=== PATIENT | female | born 1965 | race Caucasian/White ===

== ENCOUNTER 2016-05-13 20:55 | Outpatient (CLI) | payer BC ==
[~2016-05-13 20:55] MED LIST: ATEN25TA; D50KC PO; ESTR1TAB18; HYDR-757 PO; LISI1TAB6 PO; LVT.025T PO; TRM50T PO; [UNRECOGNIZED DRUG - REMARK]
== END 2016-05-14 06:05 | disposition home or self-care (01) ==
LOC: SLEEP 20:55
PROVIDERS: ATTEND Family Medicine
DX: G47.30 Sleep apnea, unspecified (principal); R06.83 Snoring
CPT/HCPCS: 95810

== ENCOUNTER 2016-06-08 19:59 | Outpatient (CLI) | payer BC ==
--- OUTSIDE RECORDS SUMMARY | 2016-06-08 20:02 | XMS REPORT | Continuity of Care Document ---
Author Author [facility] Organization [facility] Address Unknown Phone Unavailable Care Team Providers Care Marketing Performance Analyst Name Role Phone JEFF BUSTILLO DO PCP Insurance Providers Payer Name Policy Number Subscriber Name Relationship [facility] [id number] Jonny Singh 18 Self / Same As Patient [facility] [id number] Jonny Singh 18 Self / Same As Patient Advance Directives Directive Response Recorded Date/Time Advance Directives No 05/20/14 10:07am Organ Donor Yes 05/20/14 10:07am Problems No problem information available. Medications Current Home Medications Medication Dose Units Route Directions Days/Qty Instructions Start Date Ergocalciferol 50,000 Units 50,000 Units Oral Weekly 06/11/13 Levothyroxine Sodium 25 Mcg 25 Mcg Oral Daily 06/11/13 Hctz/Lisinopril (Zestoretic) 1 Each 1 Tab Oral Daily 06/11/13 Tramadol Hcl 50 Mg 50 Mg Oral Every 12 Hours as needed for P 30 NEW PRESCRIPTION CALLED IN TO [facility]. LAST DOSE AT 9:50AM 06/23/13 Past Home Medications Medication Directions Ordered Status Atenolol 25 Mg Tablet, 02/15/09 Discontinued [Stertera] , 02/15/09 Discontinued Estrogen,Con/M-Progest Acet 1 Each Tablet, 02/15/09 Discontinued Hydrocodone Bit/Acetaminophen 1 Each Tablet, 1 Each Oral Q 4 Hours 02/15/09 Discontinued Social History Social History Problem Response Recorded Date/Time Recent Foreign Travel No 05/07/2016 1:56pm Hx Sexually Transmitted Disorders No 06/23/2013 6:35am Hospital Discharge Instructions No hospital discharge instructions. Plan of Care Discharge Date 05/14/16 6:05am Prescriptions See Medication Section Functional Status No functional status results. Allergies, Adverse Reactions, Alerts Allergen Type Severity Reaction Status Last Updated NKANo Known Allergies Allergy Mild Active 02/15/09 Immunizations No immunization records. Vital Signs No known vital signs results. Results No known relevant diagnostic tests, laboratory data and/or discharge summary. Procedures No known history of procedures. Encounters Encounter Location Arrival/Admit Date Discharge/Depart Date Attending Provider Departed Clinic [facility] 05/13/16 8:55pm 05/14/16 6: 05am JEFF BUSTILLO DO
== END 2016-06-09 05:50 | disposition home or self-care (01) ==
LOC: SLEEP 19:59
PROVIDERS: ATTEND Family Medicine
DX: G47.33 Obstructive sleep apnea (adult) (pediatric) (principal)
CPT/HCPCS: 95811

== ENCOUNTER 2017-01-16 10:12 | Emergency (ER) | payer BC ==
[~2017-01-16] VITALS: Ht 165.1 cm; Wt 85.7 kg
--- OUTSIDE RECORDS SUMMARY | 2017-01-16 10:19 | XMS REPORT | Continuity of Care Document ---
Author Author [facility] Organization [facility] Address Unknown Phone Unavailable Allergies Active Description Code Type Severity Reaction Onset Reported/Identified Relationship to Patient Clinical Status Yes NKANo Known Allergies NKA Miscellaneous Allergy Mild N/A 02/15/2009 Medications Problems Date Dx Coded Attending Type Code Diagnosis Diagnosed By 06/23/2013 NATASHA AVALOS, ONEIL Hansen Ot 611.72 LUMP OR MASS IN BREAST 03/28/2014 KISHAN WALLACE CLARIFIER Ot 793.89 06/09/2014 JEFF BUSTILLO DO S Ot 276.51 10/28/2014 PETER SIDNEY C WIND FARM DESIGNER Ot 793.89 10/28/2014 PETER SIDNEY C WIND FARM DESIGNER Ot V76.12 10/28/2014 PETER, SIDNEY C WIND FARM DESIGNER Ot 793.89 10/28/2014 NATASHA AVALOS, ONEIL Hansen Ot 611.72 10/28/2014 NATASHA AVALOS, ONEIL Hansen Ot V72.83 10/28/2014 NATASHA AVALOS, ONEIL Hansen Ot V74.8 10/28/2014 KISHAN WALLACE CLARIFIER Ot 793.80 10/28/2014 KISHAN WALLACE CLARIFIER Ot 793.89 10/28/2014 JEFF BUSTILLO DO S Ot 276.51 04/19/2016 PETER SIDNEY C WIND FARM DESIGNER Ot 793.89 OTH (ABN) FINDINGS ON RADIOLOGICAL EXAMI 04/19/2016 RIDMARIJA, SIDNEY C WIND FARM DESIGNER Ot V76.12 OTH SCREEN MAMMO-MALIGN NEOPLASM OF SAJAN 04/19/2016 PETER, SIDNEY C WIND FARM DESIGNER Ot 793.89 OTH (ABN) FINDINGS ON RADIOLOGICAL EXAMI 04/19/2016 NATASHA AVALOS, ONEIL Hansen Ot 611.72 LUMP OR MASS IN BREAST 04/19/2016 NATASHA AVALOS, ONEIL Hansen Ot V72.83 EXAM PRE-OPERATIVE NEC 04/19/2016 NATASHA AVALOS, ONEIL Hansen Ot V74.8 SCREEN-BACTERIAL DIS NEC 04/19/2016 KISHAN WALLACE CLARIFIER Ot 793.80 UNSPEC ABNORMAL MAMMOGRAM 04/19/2016 KISHAN WALLACE CLARIFIER Ot 793.89 OTH (ABN) FINDINGS ON RADIOLOGICAL EXAMI 04/19/2016 JEFF BUSTILLO DO S Ot 276.51 DEHYDRATION 05/13/2016 SIDNEY GREEN WIND FARM DESIGNER Ot 793.89 OTH (ABN) FINDINGS ON RADIOLOGICAL EXAMI 05/13/2016 SIDNEY GREEN WIND FARM DESIGNER Ot V76.12 OTH SCREEN MAMMO-MALIGN NEOPLASM OF SAJAN 05/13/2016 SIDNEY GREEN WIND FARM DESIGNER Ot 793.89 OTH (ABN) FINDINGS ON RADIOLOGICAL EXAMI 05/13/2016 NATASHA AVALOS, ONEIL Hansen Ot 611.72 LUMP OR MASS IN BREAST 05/13/2016 NATASHA AVALOS, ONEIL Hansen Ot V72.83 EXAM PRE-OPERATIVE NEC 05/13/2016 NATASHA AVALOS, ONEIL Hansen Ot V74.8 SCREEN-BACTERIAL DIS NEC 05/13/2016 KISHAN WALLACE CLARIFIER Ot 793.80 UNSPEC ABNORMAL MAMMOGRAM 05/13/2016 KISHAN WALLACE CLARIFIER Ot 793.89 OTH (ABN) FINDINGS ON RADIOLOGICAL EXAMI 05/13/2016 JEFF BUSTILLO DO S Ot 276.51 DEHYDRATION 05/14/2016 JOSH BUSTILLO DOLINE S Ot G47.30 SLEEP APNEA, UNSPECIFIED 05/14/2016 JOSH BUSTILLO DOLINE S Ot R06.83 SNORING 05/14/2016 MARTIN BUSTILLO DOQUELINE S Ot G47.30 SLEEP APNEA, UNSPECIFIED 05/14/2016 ROBBIENDMARTIN SMALL DOQUELINE S Ot R06.83 SNORING 06/09/2016 MARTIN BUSTILLO DOQUELINE S Ot G47.33 OBSTRUCTIVE SLEEP APNEA (ADULT) ( PEDIATR 06/10/2016 MARTIN BUSTILLO DOQUELINE S Ot G47.33 OBSTRUCTIVE SLEEP APNEA (ADULT) ( PEDIATR Procedures Results Encounters ACCT No. Visit Date/Time Discharge Status Pt. Type Provider Facility Loc./Unit Complaint [id number] 06/08/2016 19:59:00 2016 05:50:00 DIS Outpatient JEFF BUSTILLO DO [facility] SLEEP DEDE [id number] 05/13/2016 20:55:00 2016 06:05:00 DIS Outpatient JEFF BUSTILLO DO [facility] SLEEP OBSERVED APNEA, SNORING [id number] 05/20/2014 10:02:00 2014 23:59:59 CLS Outpatient JEFF BUSTILLO DO [facility] SDC DEHYDRATION [id number] 03/01/2014 14:06:00 2013 23:59:59 CLS Outpatient KISHAN WALLACE CLARIFIER [facility] RAD SCREENING [id number] 09/10/2013 07:45:00 2013 23:59:59 CLS Outpatient KISHAN WALLACEP [facility] RAD 6 MNTH FOLLOW UP [id number] 06/23/2013 06:03:00 2013 10:28:00 DIS Outpatient ONEIL KAUR MD [facility] SDC LEFT BREAST LUMP [id number] 06/11/2013 15:14:00 2013 23:59:59 CLS Outpatient ONEIL KAUR MD [facility] PREOP LEFT BREAST LUMP [id number] 02/23/2013 12:28:00 2012 23:59:59 CLS Outpatient RIDSIDNEY DUTTON WIND FARM DESIGNER [facility] RAD LT BREAST NODULES [id number] 02/03/2013 15:32:00 2012 23:59:59 CLS Outpatient RIDSIDNEY DUTTON WIND FARM DESIGNER [facility] RAD SCREENING [id number] 12/30/2014 16:51:00 Document Registration
[2017-01-16 10:35] LABS: BASOPHILS % (AUTO) 0 % (0-10); EOSINOPHILS # (AUTO) 0.3 10^3/uL (0.0-0.3); EOSINOPHILS % (AUTO) 3 % (0-10); LYMPHOCYTES # (AUTO) 4.8 X 10^3 (1.0-4.0); LYMPHOCYTES % (AUTO) 42 % (12-44); MEAN CORPUSCULAR HEMOGLOBIN 30 PG (25-34); MEAN CORPUSCULAR HGB CONC 34 G/DL (32-36); MEAN CORPUSCULAR VOLUME 89 FL (80-99); MEAN PLATELET VOLUME 8.9 FL (7.4-10.4); MONOCYTES # (AUTO) 0.8 X 10^3 (0.0-1.0); MONOCYTES % (AUTO) 7 % (0-12); NEUTROPHILS # (AUTO) 5.5 X 10^3 (1.8-7.8); NEUTROPHILS % (AUTO) 48 % (42-75); PLATELET COUNT 380 10^3/uL (130-400); RED CELL DISTRIBUTION WIDTH 12.8 % (10.0-14.5); WHITE BLOOD COUNT 11.3 10^3/uL (4.3-11.0)
[2017-01-16 10:45] LABS: INR 0.9 (0.8-1.4); PROTHROMBIN TIME PATIENT 12.2 SEC (12.2-14.7)
[2017-01-16] MEDS ORDERED: BUPR300T51 (10:52)
--- NOTE | 2017-01-16 10:54 | ED Cough/URI ---
General Chief Complaint: Chest Wall/Rib Pain Stated Complaint: CP Nursing Triage Note: AMB TO ROOM REPORTS HAS HAS COUGH AND CONGESTION FOR 1 WEEK FINISHED STEROID 2 DAYS AGO. LAST NIGHT ONSET OF CHEST PRESSURE LAST NIGHT WORSE WHEN TAKING A DEEP BREATH,AND FELT LIKE HEART WAS RACING. HAD B/P TAKEN BY SCHOOL NURSE WAS TOLD B/P WAS UP. Source: patient History of Present Illness Time seen by provider: 10:25 Initial Comments PT ARRIVES VIA POV FROM HOME C/O NON-PRODUCTIVE COUGH SINCE 12/23/16 NOW BEGINNING TO HAVE MID CHEST PAIN AND SHORTNESS OF BREATH--HURTS TO COUGH-- SINCE LAST PM NO FEVER/SWEATS /CHILLS RX FOR PREDNISONE CALLED IN LAST WEEK, FINISHED 2 DAYS AGO. NO SIGNIFICANT IMPROVEMENT. DID NOT SEE --RX JUST CALLED IN NO SWELLING IN LEGS/FEET OR PAIN IN [place]ES HAS TAKEN MUCINEX A COUPLE OF TIMES WITHOUT IMPROVEMENT TAKES ZYZAL AT HS FOR ALLERGIES LAST COUPLE OF DAYS HER UPPER TEETH HAVE BEEN ACHING NO HISTORY OF RESPIRATORY OR CARDIAC PROBLEMS--DOES TAKE MED FOR HTN. PCP: DR. BUSTILLO Allergies and Home Medications Allergies Coded Allergies: Lulú Known Allergies (Unverified Allergy, Mild, 02/15/09) Home Medications Bupropion HCl 300 Mg Tab.er.24h, (Reported) Ergocalciferol 50,000 Units Cap, 50,000 UNITS PO WEEKLY, (Reported) Hctz/Lisinopril 1 Each Tablet, 1 TAB PO DAILY, (Reported) Levothyroxine Sodium 25 Mcg Tablet, 25 MCG PO DAILY, (Reported) Tramadol Hcl 50 Mg Tab, 50 MG PO Q12H PRN for P, #30 NEW PRESCRIPTION CALLED IN TO [facility]. LAST DOSE AT 9:50AM Prescribed by: AMARILIS LFOTON on 06/23/13 0952 Constitutional: no symptoms reported EENTM: see HPI (ALLERGIES), nose congestion Respiratory: see HPI, cough, No phlegm, short of breath, No wheezing Cardiovascular: see HPI, chest pain, palpitations, No syncope, No other Gastrointestinal: no symptoms reported Genitourinary: no symptoms reported Musculoskeletal: no symptoms reported Skin: no symptoms reported Psychiatric/Neurological: No Symptoms Reported Hematologic/Lymphatic: No Symptoms Reported Immunological/Allergic: see HPI (SEASONAL ALLERGIES) Past Ktmrykb-Dmmgzb-Gavpkn Hx Patient Social History Alcohol Use: Denies Use Recreational Drug Use: No Smoking Status: Never a Smoker Recent Foreign Travel: No Contact w/Someone Who Travel: No Recent Infectious Disease Expo: No Immunizations Up To Date Date of Influenza Vaccine: Dec 20, 2013 Seasonal Allergies Seasonal Allergies: Yes Surgeries History of Surgeries: Yes (C/S X4, ) Surgeries: Gallbladder, Hysterectomy Respiratory History of Respiratory Disorde: No Cardiovascular History of Cardiac Disorders: Yes Cardiac Disorders: Hypertension Neurological History of Neurological Disord: No Reproductive System Hx Reproductive Disorders: No Sexually Transmitted Disease: No Genitourinary History of Genitourinary Disor: No Gastrointestinal History of Gastrointestinal Di: No Musculoskeletal History of Musculoskeletal Dis: No Endocrine History of Endocrine Disorders: Yes Endocrine Disorders: Hypothyroidsim HEENT History of HEENT Disorders: No Cancer History of Cancer: No Psychosocial History of Psychiatric Problem: No Integumentary History of Skin or Integumenta: No Blood Transfusions History of Blood Disorders: No Physical Exam Vital Signs Vital Sign - Last 12Hours 01/16/17 10:12 Temp 97.4 Pulse 79 Resp 18 B/P (MAP) 144/86 O2 Delivery Room Air Capillary Refill : Less Than 3 Seconds General Appearance: WD/WN, no apparent distress, other (FREQUENT COUGH-- APPEARS TO BE FROM UPPER RESPIRATORY TRACT/THROAT, WITH FREQUENT THROAT CLEARING --NOT A "DEEP" COUGH) HEENT: PERRL/EOMI, normal ENT inspection (EXCEPT CLEAR POST NASAL DRAINAGE), TMs normal, pharynx normal, other (+ BILATERAL MAXILLARY SINUS TENDERNESS. ) Neck: non-tender, full range of motion, supple, normal inspection Respiratory: chest non-tender, normal breath sounds, no respiratory distress, no accessory muscle use Cardiovascular: regular rate, rhythm, no edema, no JVD, no murmur Gastrointestinal: normal bowel sounds, non tender, soft Extremities: normal range of motion, non-tender, normal inspection, no pedal edema, no calf tenderness, normal capillary refill Neurologic/Psychiatric: system validation engineer II-XII nml as tested, no motor/sensory deficits, alert, normal mood/affect, oriented x 3 Skin: normal color, warm/dry Progress/Results/Core Measures Results/Orders Lab Results Laboratory Tests Test 01/16/17 10:26 Range/Units White Blood Count 11.3 H 4.3-11.0 10^3/uL Red Blood Count 4.70 4.35-5.85 10^6/uL Hemoglobin 14.2 11.5-16.0 G/DL Hematocrit 42 35-52 % Mean Corpuscular Volume 89 80-99 FL Mean Corpuscular Hemoglobin 30 25-34 PG Mean Corpuscular Hemoglobin Concent 34 32-36 G/DL Red Cell Distribution Width 12.8 10.0-14.5 % Platelet Count 380 130-400 10^3/uL Mean Platelet Volume 8.9 7.4-10.4 FL Neutrophils (%) (Auto) 48 42-75 % Lymphocytes (%) (Auto) 42 12-44 % Monocytes (%) (Auto) 7 0-12 % Eosinophils (%) (Auto) 3 0-10 % Basophils (%) (Auto) 0 0-10 % Neutrophils # (Auto) 5.5 1.8-7.8 X 10^3 Lymphocytes # (Auto) 4.8 H 1.0-4.0 X 10^3 Monocytes # (Auto) 0.8 0.0-1.0 X 10^3 Eosinophils # (Auto) 0.3 0.0-0.3 10^3/uL Basophils # (Auto) 0.0 0.0-0.1 10^3/uL Prothrombin Time 12.2 12.2-14.7 SEC INR Comment 0.9 0.8-1.4 Activated Partial Thromboplast Time 25 24-35 SEC Sodium Level 138 135-145 MMOL/L Potassium Level 3.3 L 3.6-5.0 MMOL/L Chloride Level 99 98-107 MMOL/L Carbon Dioxide Level 26 21-32 MMOL/L Anion Gap 13 5-14 MMOL/L Blood Urea Nitrogen 22 H 7-18 MG/DL Creatinine 0.88 0.60-1.30 MG/DL Estimat Glomerular Filtration Rate > 60 BUN/Creatinine Ratio 25 Glucose Level 94 70-105 MG/DL Calcium Level 9.3 8.5-10.1 MG/DL Magnesium Level 1.9 1.8-2.4 MG/DL Total Bilirubin 0.4 0.1-1.0 MG/DL Aspartate Amino Transf (AST/SGOT) 16 5-34 U/L Alanine Aminotransferase (ALT/SGPT) 22 0-55 U/L Alkaline Phosphatase 62 40-136 U/L Total Creatine Kinase 61 29-168 U/L Creatine Kinase MB 1.7 <6.6 NG/ML B-Type Natriuretic Peptide 11.2 <100.0 PG/ML Total Protein 7.8 6.4-8.2 GM/DL Albumin 4.3 3.2-4.5 GM/DL My Orders Orders - KAREN DESIR DO Ekg Tracing (01/16/17 10:14) Saline Lock/Iv-Start (01/16/17 10:29) Monitor-Rhythm Ecg Trace Only (01/16/17 10:29) BNP (01/16/17 10:29) Cbc With Automated Diff (01/16/17 10:29) Comprehensive Metabolic Panel (01/16/17 10:29) Creatine Kinase (01/16/17 10:29) Creatine Kinase Mb (01/16/17 10:29) Magnesium (01/16/17 10:29) Protime With Inr (01/16/17 10:29) Partial Thromboplastin Time (01/16/17 10:29) Troponin I (01/16/17 10:29) Chest Pa/Lat (2 View) (01/16/17 10:29) Vital Signs/I&O Vital Sign - Last 12Hours 01/16/17 10:12 Temp 97.4 Pulse 79 Resp 18 B/P (MAP) 144/86 O2 Delivery Room Air Blood Pressure Mean: 105 Diagnostic Imaging Comments CXR--NO ACUTE PROCESS, PER RADIOLOGIST REPORT @ 1104 Reviewed: Reviewed by Me Departure Impression Impression: Primary Impression: Acute bronchitis Additional Impressions: Sinusitis Chest wall pain Disposition: 01 HOME, SELF-CARE Condition: Stable Departure-Patient Inst. Referrals: JEFF BUSTILLO DO (PCP/Family) Primary Care Physician Patient Instructions: Acute Bronchitis, Adult (DC), Costochondritis (DC), Sinusitis, Adult (DC) Add. Discharge Instructions: LOTS OF CLEAR LIQUIDS CONTINUE ZYZAL DAILY TYLENOL AND MOTRIN NEEDED FOR PAIN YOU MAY TAKE PLAIN MUCINEX 600 MG TWICE A DAY FOLLOW UP WITH DR. BUSTILLO IN 3-4 DAYS FOR FURTHER CARE All discharge instructions reviewed with patient and/or family. Voiced understanding. Scripts D-Methorphan Hb/Prometh HCl (Promethazine-Dm Syrup) 118 Ml Syrup 1-2 TSP PO Q4H for Cough, #120 ML Prov: KAREN DESIR DO 01/16/17 Benzonatate (Tessalon Perle) 100 Mg Capsule 1-2 TAB PO TID for Cough, #30 CAP Prov: KAREN DESIR DO 01/16/17 Fluticasone Propionate (Flonase Allergy Relief) 9.9 Ml [place].susp 2 SPRAYS NS BID, #1 SPRAY Prov: KAREN DESIR DO 01/16/17 Levofloxacin (Levaquin) 500 Mg Tablet 500 MG PO DAILY for INFECTION, #14 TAB Prov: KAREN DESIR DO 01/16/17 KAREN DESIR DO Jan 16, 2017 10:54
[2017-01-16 10:56] LABS: ALANINE AMINOTRANSFERASE 22 U/L (0-55); ALBUMIN 4.3 GM/DL (3.2-4.5); ANION GAP 13 MMOL/L (5-14); ASPARTATE AMINO TRANSFERASE 16 U/L (5-34); BILIRUBIN,TOTAL 0.4 MG/DL (0.1-1.0); BLOOD UREA NITROGEN 22 MG/DL (7-18); BUN/CREATININE RATIO 25; CALCIUM 9.3 MG/DL (8.5-10.1); CARBON DIOXIDE 26 MMOL/L (21-32); CHLORIDE 99 MMOL/L (98-107); CREATINE KINASE 61 U/L (29-168); CREATININE SERUM 0.88 MG/DL (0.60-1.30); GFR ESTIMATED > 60; GLUCOSE 94 MG/DL (70-105); MAGNESIUM 1.9 MG/DL (1.8-2.4); POTASSIUM 3.3 MMOL/L (3.6-5.0); SODIUM 138 MMOL/L (135-145); TOTAL PROTEIN 7.8 GM/DL (6.4-8.2)
[2017-01-16 11:03] LABS: TROPONIN I < 0.30 NG/ML (<0.30)
--- NOTE | 2017-01-16 11:03 | Diagnostic Imaging Report ---
PA and lateral views of the chest Indication: Cough Findings: The lungs are clear. The heart size is normal. There is no effusion or pneumothorax The mediastinum and katie appear unremarkable. Surgical clips are seen in the upright abdomen. Impression: Unremarkable study. Dictated by: Dictated on workstation # [id number]
[2017-01-16] MEDS ORDERED: LEVO500T2 PO (11:14)
[2017-01-16] MEDS ORDERED: BENZ-13 PO (11:14)
[2017-01-16] MEDS ORDERED: D-ME118S7 PO (11:14)
[2017-01-16] MEDS ORDERED: FLUT9.9S NS (11:14)
[2017-01-16 11:24] VITALS: BP 123/72
== END 2017-01-16 11:24 | disposition home or self-care (01) ==
LOC: EDUNIT# 10:12 → ER 10:15
DX: J20.9 Acute bronchitis, unspecified (principal); J30.9 Allergic rhinitis, unspecified; R07.89 Other chest pain; I10 Essential (primary) hypertension; E03.9 Hypothyroidism, unspecified; Z90.710 Acquired absence of both cervix and uterus; Z87.59 Personal history of other complications of pregnancy, childbirth and the puerperium
CPT/HCPCS: 36415; 71020; 80053; 82550; 82553; 83735; 83880; 84484; 85025; 85610; 85730; 93005; 93041

== ENCOUNTER → 2017-02-07 | Outpatient (CLI) | payer BC ==
[~2017-02-07] MED LIST changes: +BENZ-13 PO; +BUPR300T51; +D-ME118S7 PO; +FLUT9.9S NS; +LEVO500T2 PO
== END ==
LOC: CARD 16:14
PROVIDERS: ATTEND Family Medicine
DX: R07.9 Chest pain, unspecified (principal); R00.2 Palpitations
CPT/HCPCS: 93005

== ENCOUNTER → 2017-03-06 | Outpatient (CLI) | payer BC ==
--- NOTE | 2017-03-06 19:05 | Diagnostic Imaging Report ---
INDICATION: Persistent cough. PA and lateral chest obtained at 4:43 p.m. and compared to 01/16/17. FINDINGS: Heart and mediastinal silhouette are normal in appearance. The lungs are clear. There is no pneumothorax or pleural fluid. IMPRESSION: Negative chest. Dictated by: Dictated on workstation # [id number]
== END ==
LOC: RAD 16:09
PROVIDERS: ATTEND Family Medicine
DX: R05 Cough (principal)
CPT/HCPCS: 71020

== ENCOUNTER → 2017-03-07 | Outpatient (CLI) | payer BC | LOC: CARD 13:49 | PROVIDERS: ATTEND Family Medicine | DX: R01.1 Cardiac murmur, unspecified (principal); R60.9 Edema, unspecified | CPT/HCPCS: 93306 ==

== ENCOUNTER → 2017-03-12 | Outpatient (CLI) | payer BC | LOC: CARD 13:41 | PROVIDERS: ATTEND Family Medicine | DX: I49.9 Cardiac arrhythmia, unspecified (principal) | CPT/HCPCS: 93017 ==

== ENCOUNTER → 2017-03-17 | Outpatient (CLI) | payer BC ==
[~2017-03-17] MED LIST changes: +IOHEXOL 350 MG/ML 100 ML (OMNIPAQUE 350) VIAL IV ONE; +IOHEXOL 350 MG/ML 150 ML (OMNIPAQUE 350) VIAL IV ONE; +NS 100 ML (IVPB) BAG IV ONE
[2017-03-17 07:31] LABS: BLOOD UREA NITROGEN 14 MG/DL (7-18); BUN/CREATININE RATIO 17; CREATININE SERUM 0.83 MG/DL (0.60-1.30); GFR ESTIMATED > 60
--- NOTE | 2017-03-17 11:39 | Diagnostic Imaging Report ---
PROCEDURE: CT angiography of the chest with contrast. TECHNIQUE: Multiple contiguous axial images were obtained through the chest after uneventful bolus administration of intravenous contrast. Reconstructed CTA MIP acquisitions were also performed. INDICATION: Chest pain. 125 mL of Omnipaque 350 is administered intravenously. FINDINGS: The pulmonary arteries demonstrate no significant filling defect to suggest pulmonary embolism. The thoracic aorta is normal in caliber. No aortic dissection. No pericardial or pleural effusion. The heart size is near the upper limits of normal. The lungs demonstrate no significant consolidation or mass. Minimal atelectasis or scarring in the lung bases is seen. The sections in the upper abdomen demonstrate cholecystectomy clips. The osseous structures demonstrate minimal degenerative changes. IMPRESSION: No PE or aortic dissection. No significant abnormality. Dictated by: Dictated on workstation # [id number]
== END ==
LOC: RAD 07:03
PROVIDERS: ATTEND Family Medicine
DX: R07.9 Chest pain, unspecified (principal); R06.00 Dyspnea, unspecified; Z90.49 Acquired absence of other specified parts of digestive tract
CPT/HCPCS: 36415; 71275; 82565; 84520

== ENCOUNTER → 2017-04-02 | Outpatient (CLI) | payer BC ==
[~2017-04-02] MED LIST changes: -IOHEXOL 350 MG/ML 100 ML (OMNIPAQUE 350) VIAL IV ONE; -IOHEXOL 350 MG/ML 150 ML (OMNIPAQUE 350) VIAL IV ONE; -NS 100 ML (IVPB) BAG IV ONE
== END ==
LOC: RT 11:35
PROVIDERS: ATTEND Family Medicine
DX: R05 Cough (principal)
CPT/HCPCS: 94060; 94726; 94729

== ENCOUNTER → 2017-07-10 | Outpatient (CLI) | payer BC ==
--- NOTE | 2017-07-10 17:44 | Diagnostic Imaging Report ---
INDICATION: Routine screening. Comparison is made with prior study from 03/01/2014 and 02/03/2013. The current study was also evaluated with a Computer Aided Detection (CAD) system. FINDINGS: Scattered fibronodular densities are identified bilaterally. The parenchymal pattern is stable. The nodular densities in the left breast are stable. No new mass or malignant-appearing microcalcifications are seen. Axillae are unremarkable. IMPRESSION: No mammographic features suspicious for malignancy are identified. ACR BI-RADS Category 2: Benign findings. Result letter will be mailed to the patient. Note: At least 10% of breast cancer is not imaged by mammography. Dictated by: Dictated on workstation # [id number]
== END ==
LOC: RAD 09:24
PROVIDERS: ATTEND Family Medicine
DX: Z12.31 Encounter for screening mammogram for malignant neoplasm of breast (principal)
CPT/HCPCS: 77067

== ENCOUNTER 2017-08-05 05:39 | Outpatient (CLI) | payer BC ==
[~2017-08-05] VITALS: Ht 165.1 cm; Wt 85.7 kg
[~2017-08-05 05:39] MED LIST changes: -BUPR300T51; +BUPR300T51 PO
[2017-08-05] MEDS ORDERED: LOSA100T3 PO (15:48)
[2017-08-05] MEDS ORDERED: ERGO50006 PO (15:48)
[2017-08-05] MEDS ORDERED: LEVO50TA6 PO (15:48)
[2017-08-05] MEDS ORDERED: ALPR0.254 PO (15:53)
== END 2017-08-05 15:55 ==
LOC: PREOP 05:39
PROVIDERS: ATTEND Surgery
DX: Z01.818 Encounter for other preprocedural examination (principal); Z12.11 Encounter for screening for malignant neoplasm of colon

== ENCOUNTER → 2018-01-26 | Outpatient (CLI) | payer BC ==
[~2018-01-26] MED LIST changes: +ALPR0.254 PO; -BENZ-13 PO; +BENZ100C18 PO; +ERGO50006 PO; +LEVO50TA6 PO; +LOSA100T3 PO
--- NOTE | 2018-01-26 16:51 | Diagnostic Imaging Report ---
CLINICAL INDICATION: Patient with thyromegaly. COMPARISONS: None. FINDINGS: THYROID NODULES: None. THYROID GLAND: Thyroid gland is heterogeneous, but otherwise normal in size and configuration. The right lobe measures 5.1 cm x 1.8 cm x 1.6 cm and the left lobe measures 4.8 cm x 2.2 cm x 1.8 cm in their three dimensions. ISTHMUS: The isthmus is mildly prominent and measures 8 mm in thickness. IMPRESSION: The thyroid parenchyma is heterogeneous which is nonspecific. There are no measurable nodules seen. There is no abnormal central Doppler flow. Dictated by: Dictated on workstation # [id number]
== END ==
LOC: RAD 14:42
PROVIDERS: ATTEND Nurse Practitioner Family
DX: E04.2 Nontoxic multinodular goiter (principal)
CPT/HCPCS: 76536

== ENCOUNTER 2019-05-25 18:28 | Emergency (ER) | payer BC ==
[~2019-05-25] VITALS: Ht 160 cm; Wt 100.0 kg
[~2019-05-25 18:28] MED LIST changes: -D-ME118S7 PO; +PROM118S4 PO
[2019-05-25] MEDS ORDERED: KETOROLAC 30 MG/ML VIAL IVP ONE (19:30)
[2019-05-25] MEDS ORDERED: fentaNYL INJECTION 100 MCG/2 ML AMP IVP ONE ×2 (19:30→21:30)
--- NOTE | 2019-05-25 19:30 | ED Back Pain ---
General Chief Complaint: Back Problems Stated Complaint: BACK PAIN Nursing Triage Note: AMB TO ED C/O ABD PAIN WAS GIVEN A IM TODAY BY MAGNETIC LOCATER FLEXARIL AND TTORODOL IM AND RX FOR PREDISONE AND WAS TOLD NOT TO TAKE IT YET. WAS GIVEN RX FOR X RAYS C/O R BACK PAIN Nursing Sepsis Screen: No Definite Risk Source of Information: Patient Exam Limitations: No Limitations History of Present Illness Date Seen by Provider: May 25, 2019 Time Seen by Provider: 19:28 Initial Comments To ER by private vehicle with reports of right low back pain that began sometime in April with a rather insidious onset. Pain has become nearly intolerable throughout the past week she cannot recall any inciting event. Nothing makes it better and nothing makes it worse. No fever no chills no loss of bowel or bladder control and no loss of sensation of the genitals. No history of cancer herself. No history of back pain. Pain radiates from the right sacroiliac region to the right buttocks and around to the anterior right groin. Location: Coccyx Timing/Duration: 1-2 Days Severity: Moderate Associated Symptoms: lower back pain Allergies and Home Medications Allergies Coded Allergies: NKANo Known Allergies (Unverified Allergy, Mild, 02/15/09) Home Medications Alprazolam 0.25 Mg Tablet, 0.25 MG PO TID PRN for ANXIETY, (Reported) Bupropion HCl 300 Mg Tab.er.24h, 300 MG PO DAILY, (Reported) Ergocalciferol (Vitamin D2) 50,000 Unit Capsule, 50,000 UNIT PO WEEK, (Reported) Levothyroxine Sodium 50 Mcg Tablet, 50 MCG PO DAILY, (Reported) Losartan Potassium 100 Mg Tablet, 100 MG PO DAILY, (Reported) Patient Home Medication List Home Medication List Reviewed: Yes Review of Systems Constitutional: see HPI EENTM: see HPI Respiratory: no symptoms reported Cardiovascular: no symptoms reported Genitourinary: no symptoms reported Musculoskeletal: see HPI Skin: no symptoms reported Psychiatric/Neurological: No Symptoms Reported Past Knpwfzr-Gtuvvu-Owwpkz Hx Patient Social History Alcohol Use: Denies Use Recreational Drug Use: No Smoking Status: Never a Smoker Recent Foreign Travel: No Contact w/Someone Who Travel: No Recent Infectious Disease Expo: No Recent Hopitalizations: No Immunizations Up To Date Date of Influenza Vaccine: Dec 20, 2013 Seasonal Allergies Seasonal Allergies: Yes Past Medical History Surgeries: Yes (C/S X4, ) Gallbladder, Hysterectomy Respiratory: Yes Sleep Apnea Currently Using CPAP: Yes Cardiac: Yes Hypertension Neurological: No Reproductive Disorders: No VALVE SETTER History: Hysterectomy Sexually Transmitted Disease: No Genitourinary: No Gastrointestinal: No Musculoskeletal: No Endocrine: Yes Hypothyroidsim HEENT: No Cancer: No Psychosocial: No Integumentary: No Blood Disorders: No Physical Exam Vital Signs Vital Signs - First Documented 05/25/19 18:39 Temp 36.8 Pulse 73 Resp 18 B/P (MAP) 136/83 (100) Pulse Ox 98 Capillary Refill : Less Than 3 Seconds Height, Weight, BMI Height: 5'5.00" Weight: 189lbs. 0.0oz. 85.979743ba; 39.00 BMI Method:Stated General Appearance: No Apparent Distress, WD/WN Neck: Full Range of Motion, Normal Inspection Respiratory: No Accessory Muscle Use, No Respiratory Distress Gastrointestinal: Soft Extremity: Normal Capillary Refill, Normal Inspection Neurologic/Psychiatric: Alert, Oriented x3 Skin: Normal Color, Warm/Dry Right SI joint tenderness palpation Progress/Results/Core Measures Results/Orders My Orders Orders - WILLIAM STODDARD APRN Ketorolac Injection (Toradol Injection) (05/25/19 19:30) Fentanyl Injection (Sublimaze Injection (05/25/19 19:30) Ed Iv/Invasive Line Start (05/25/19 19:27) Ct Lumbar Spine Wo (05/25/19 19:27) Rx-Hydrocodone/Apap 5-325 Mg (Rx-Vicodin (05/25/19 21:00) Fentanyl Injection (Sublimaze Injection (05/25/19 21:30) Prednisone Tablet (Deltasone Tablet) (05/25/19 21:30) Medications Given in ED Current Medications Medications Dose Ordered Sig/Natali Route Start Time Stop Time Status Last Admin Dose Admin Fentanyl Citrate 50 mcg ONCE ONCE IVP 05/25/19 19:30 05/25/19 19:31 DC 05/25/19 19:55 50 MCG Ketorolac Tromethamine 30 mg ONCE ONCE IVP 05/25/19 19:30 05/25/19 19:31 DC 05/25/19 19:55 30 MG Vital Signs/I&O 05/25/19 18:39 Temp 36.8 Pulse 73 Resp 18 B/P (MAP) 136/83 (100) Pulse Ox 98 Blood Pressure Mean: 100 Departure Impression Primary Impression: Lumbar radiculopathy Disposition: 01 HOME, SELF-CARE Condition: Stable Departure-Patient Inst. Decision time for Depature: 20:47 Referrals: JEFF BUSTILLO DO (PCP/Family) Primary Care Physician Patient Instructions: Radiculopathy (DC), Low Back Pain (DC) Add. Discharge Instructions: 1. Call Dr. Bustillo tomorrow to make an appointment to be seen for follow-up. Go ahead and start the prednisone. All discharge instructions reviewed with patient and/or family. Voiced understanding. Scripts Prednisone (Prednisone) 20 Mg Tab 40 MG PO DAILY, #6 TAB 0 Refills Prov: WILLIAM STODDRAD APRN 05/25/19 Hydrocodone/Acetaminophen ([place] 5-325 Tablet) 1 Each Tablet 1 TAB PO Q4-6HR for Pain MDD 10 TABS for 7 Days, #10 TAB Prov: WILLIAM STODDARD APRN 05/25/19 Copy Copies To 1: JEFF BUSTILLO PETER J APRN May 25, 2019 19:30
[2019-05-25] MEDS ORDERED: RX-HYDROCODONE/APAP 5/325 MG #4 TAB PK PO PRN (21:00)
--- NOTE | 2019-05-25 21:07 | Diagnostic Imaging Report ---
PROCEDURE: CT lumbar spine without contrast. TECHNIQUE: Multiple contiguous axial images were obtained through the lumbar spine without the use of intravenous contrast. Sagittal and coronal reformations were then performed. Auto Exposure Controls were utilized during the CT exam to meet ALARA standards for radiation dose reduction. DATE: May 25, 2019. INDICATION: 54-year-old female, back pain extending down the right leg. COMPARISON: None. FINDINGS: The alignment of the lumbar spine is unremarkable. There is no identified pars interarticularis defect. There is severe disc height loss at L5-S1 with mild endplate degenerative related changes. There are mild bilateral facet degenerative changes at this level. There is moderate disc height loss at L4-L5. CT is limited for assessment of disc pathology as well as additional nonbloody causes of pathology in the spinal canal. At L4-L5, there is a diffuse disc bulge and there does appear to be high-grade right foraminal narrowing and likely mild to moderate right foraminal narrowing. There is suspected mild spinal stenosis. There also appears to be moderate bilateral foraminal narrowing at L5-S1. There is a suspected diffuse disc bulge at L5-S1. There is no identified acute fracture of the lumbar spine. The sacroiliac joints are unremarkable in appearance. There are atherosclerotic calcifications. IMPRESSION: 1. No identified acute fracture or malalignment of the lumbar spine. 2. Disc and facet degenerative changes of the lumbar spine most notable at L4-L5 and L5-S1. There is suspected foraminal and/or spinal stenosis at these levels. This would be more optimally evaluated with MRI. Dictated by: Dictated on workstation # [id number]
[2019-05-25] MEDS ORDERED: PRD20T PO (21:28)
[2019-05-25] MEDS ORDERED: HYDR-4226 PO (21:28)
[2019-05-25] MEDS ORDERED: predniSONE 20 MG TAB PO ONE (21:30)
[2019-05-25 21:38] VITALS: BP 132/78
== END 2019-05-25 21:39 | disposition home or self-care (01) ==
LOC: EDUNIT# 18:28 → ER 18:29
DX: M54.16 Radiculopathy, lumbar region (principal); I10 Essential (primary) hypertension; G47.30 Sleep apnea, unspecified; E03.9 Hypothyroidism, unspecified; Z99.89 Dependence on other enabling machines and devices
CPT/HCPCS: 72131

== ENCOUNTER → 2019-06-08 | Outpatient (CLI) | payer BC ==
[~2019-06-08] MED LIST changes: +HYDR-4226 PO; +PRD20T PO
--- NOTE | 2019-06-08 16:21 | Diagnostic Imaging Report ---
PROCEDURE: MRI lumbar spine. TECHNIQUE: Multiplanar, multisequence MRI of the lumbar spine was performed without contrast. INDICATION: Low back pain with right leg cramping. FINDINGS: The alignment of the lumbar spine is normal. The vertebral body heights are well maintained. There is no spondylolysis or spondylolisthesis. No fractures are identified. Conus medullaris is seen at L1 and is normal in appearance. There are no pathologic marrow signal intensity abnormalities. At T12-L1, there is no spinal or neural foraminal encroachment. At L1-L2, there is no spinal or neural foraminal encroachment. At L2-L3, there is no spinal or neural foraminal encroachment. At L3-L4, there is some facet disease and thickening of the ligamentum flavum. There is some minimal encroachment upon the central canal. There is no significant spinal or neural foraminal encroachment. At L4-L5, there is loss of disc height and signal intensity. There is broad-based annular bulging, facet disease, and thickening of the ligamentum flavum. There is moderate spinal stenosis with encroachment upon the lateral recess bilaterally. There is some moderate bilateral neural foraminal encroachment. At L5-S1, there is loss of disc height and signal intensity. There are Modic changes in the endplates. There is some annular bulging and facet disease. There is moderate spinal stenosis with some encroachment upon the lateral recess bilaterally. There is moderate bilateral neural foraminal encroachment. The aorta is nonaneurysmal. Visualized kidneys are unremarkable. IMPRESSION: Lower lumbar spondylosis and degenerative disc disease as detailed above. Dictated by: Dictated on workstation # [id number]
== END ==
LOC: RAD 14:58
PROVIDERS: ATTEND Orthopaedic Surgery Orthopaedic Surgery of the Spine
DX: M47.816 Spondylosis without myelopathy or radiculopathy, lumbar region (principal); M51.37 Other intervertebral disc degeneration, lumbosacral region; M48.07 Spinal stenosis, lumbosacral region
CPT/HCPCS: 72148

== ENCOUNTER 2020-12-06 15:52 | Emergency (ER) | payer BC ==
[~2020-12-06] VITALS: Ht 162 cm; Wt 95.0 kg
[~2020-12-06 15:52] MED LIST changes: +ALPR.25T PO; -ALPR0.254 PO; -BUPR300T51 PO; +BUPR300T98 PO; -PROM118S4 PO; +PROM118S5 PO
[2020-12-06 16:27] LABS: BASOPHILS % (AUTO) 0 % (0-10); EOSINOPHILS # (AUTO) 0.1 10^3/uL (0.0-0.3); EOSINOPHILS % (AUTO) 1 % (0-10); HEMATOCRIT 43 % (35-52); HEMOGLOBIN 14.4 g/dL (11.5-16.0); LYMPHOCYTES # (AUTO) 3.3 10^3/uL (1.0-4.0); LYMPHOCYTES % (AUTO) 36 % (12-44); MEAN CORPUSCULAR HEMOGLOBIN 30 pg (25-34); MEAN CORPUSCULAR HGB CONC 33 g/dL (32-36); MEAN CORPUSCULAR VOLUME 91 fL (80-99); MEAN PLATELET VOLUME 9.2 fL (9.0-12.2); MONOCYTES # (AUTO) 0.5 10^3/uL (0.0-1.0); MONOCYTES % (AUTO) 5 % (0-12); NEUTROPHILS # (AUTO) 5.1 10^3/uL (1.8-7.8); NEUTROPHILS % (AUTO) 57 % (42-75); PLATELET COUNT 355 10^3/uL (130-400)
[2020-12-06] MEDS ORDERED: dilTIAZem DRIP PRE-MIX 125 ML IV SCH (16:30)
[2020-12-06 16:32] LABS: ALBUMIN 4.5 GM/DL (3.2-4.5)
[2020-12-06 16:33] LABS: POTASSIUM 3.3 MMOL/L (3.6-5.0)
[2020-12-06 16:35] LABS: TOTAL PROTEIN 7.7 GM/DL (6.4-8.2)
[2020-12-06 16:37] LABS: BILIRUBIN,TOTAL 0.5 MG/DL (0.1-1.0)
[2020-12-06 16:39] LABS: CREATININE SERUM 0.86 MG/DL (0.60-1.30)
[2020-12-06 16:40] LABS: INR 0.9 (0.8-1.4); PROTHROMBIN TIME PATIENT 12.7 SEC (12.2-14.7)
[2020-12-06 16:42] LABS: MAGNESIUM 2.2 MG/DL (1.6-2.4)
--- NOTE | 2020-12-06 16:46 | Diagnostic Imaging Report ---
INDICATION: Chest pain. COMPARISON: 03/06/2017. FINDINGS: Single frontal view of the chest demonstrates normal heart size and pulmonary vascularity. The lungs are well aerated and clear. No large pleural effusion or pneumothorax is seen. The visualized osseous structures show no acute abnormalities. IMPRESSION: 1. No acute cardiopulmonary process. Dictated by: Dictated on workstation # [id number]
[2020-12-06 17:05] LABS: FREE T4 (FREE THYROXINE) 1.16 NG/DL (0.70-1.48)
--- NOTE | 2020-12-06 17:06 | ED Cardiac General ---
History of Present Illness General Chief Complaint: Cardiac/General Problems Stated Complaint: AFIB RVR Nursing Triage Note: TO ED PER EMS FROM [facility] PATIENT HAD WENT IN BECAUSE FELT NUMBNESS IN HEAD AND NECK WITH FLUTTER. CHC FOUND PATIENT TO BE IN A FIB WITH A RATE OF 100- 150 ON EMS ARRIVAL FOUND PATIENT TO BE IN A FIB WITH RATE OF 150 TO 200 VAGAL MANEUVERS TRIED. PATIENT B/P SYSTOLIC IN 80 FLUIDS INFUSING ON ADMIT PATIENT ALERT. ON ADMIT ANXIOUS REPORTS HAS PMH OF ANXIETY, Source: patient Exam Limitations: no limitations History of Present Illness Date Seen by Provider: Dec 06, 2020 Time Seen by Provider: 16:15 Allergies and Home Medications Allergies Coded Allergies: NKANo Known Allergies (Unverified Allergy, Mild, 02/15/09) Home Medications ALPRAZolam 0.25 Mg Tablet, 0.25 MG PO TID PRN for ANXIETY, (Reported) Apixaban 5 Mg Tablet, 5 MG PO BID Prescribed by: LAVON FRANCIS on 12/06/201902 Bupropion HCl 300 Mg Tab.er.24h, 300 MG PO DAILY, (Reported) Diltiazem HCl 240 Mg Cap.er.24h, 240 MG PO DAILY Prescribed by: LAVON FRANCIS on 12/06/201902 Ergocalciferol (Vitamin D2) 50,000 Unit Capsule, 50,000 UNIT PO WEEK, (Reported) Hydrocodone/Acetaminophen 1 Each Tablet, 1 TAB PO Q4-6HR Prescribed by: WILLIAM STODDARD on 05/25/192127 Levothyroxine Sodium 50 Mcg Tablet, 50 MCG PO DAILY, (Reported) Losartan Potassium 100 Mg Tablet, 100 MG PO DAILY, (Reported) Prednisone 20 Mg Tab, 40 MG PO DAILY Prescribed by: WILLIAM STODDARD on 05/25/192127 Past Igpobrn-Bdippb-Bsgalx Hx Patient Social History Tobacco Use?: No Use of E-Cig and/or Vaping dev: No Substance use?: No Alcohol Use?: No Pt feels they are or have been: No Immunizations Up To Date First/Initial COVID19 Vaccinat: MAY Second COVID19 Vaccination Jon: JUNE 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: [place] Seasonal Allergies Seasonal Allergies: Yes Past Medical History Surgeries: Yes (C/S X4, ) Gallbladder, Hysterectomy Respiratory: Yes Sleep Apnea Currently Using CPAP: Yes Cardiac: Yes Hypertension Neurological: No 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 0.0oz. 85.458616pe; 36.00 BMI Method:Stated Progress/Results/Core Measures Results/Orders Lab Results Laboratory Tests Test 12/06/20 15:55 Range/Units White Blood Count 9.0 4.3-11.0 10^3/uL Red Blood Count 4.75 3.80-5.11 10^6/uL Hemoglobin 14.4 11.5-16.0 g/dL Hematocrit 43 35-52 % Mean Corpuscular Volume 91 80-99 fL Mean Corpuscular Hemoglobin 30 25-34 pg Mean Corpuscular Hemoglobin Concent 33 32-36 g/dL Red Cell Distribution Width 13.2 10.0-14.5 % Platelet Count 355 130-400 10^3/uL Mean Platelet Volume 9.2 9.0-12.2 fL Immature Granulocyte % (Auto) 0 % Neutrophils (%) (Auto) 57 42-75 % Lymphocytes (%) (Auto) 36 12-44 % Monocytes (%) (Auto) 5 0-12 % Eosinophils (%) (Auto) 1 0-10 % Basophils (%) (Auto) 0 0-10 % Neutrophils # (Auto) 5.1 1.8-7.8 10^3/uL Lymphocytes # (Auto) 3.3 1.0-4.0 10^3/uL Monocytes # (Auto) 0.5 0.0-1.0 10^3/uL Eosinophils # (Auto) 0.1 0.0-0.3 10^3/uL Basophils # (Auto) 0.0 0.0-0.1 10^3/uL Immature Granulocyte # (Auto) 0.0 0.0-0.1 10^3/uL Prothrombin Time 12.7 12.2-14.7 SEC INR Comment 0.9 0.8-1.4 Activated Partial Thromboplast Time 28 24-35 SEC Sodium Level 140 135-145 MMOL/L Potassium Level 3.3 L 3.6-5.0 MMOL/L Chloride Level 103 98-107 MMOL/L Carbon Dioxide Level 25 21-32 MMOL/L Anion Gap 12 5-14 MMOL/L Blood Urea Nitrogen 16 7-18 MG/DL Creatinine 0.86 0.60-1.30 MG/DL Estimat Glomerular Filtration Rate 69 BUN/Creatinine Ratio 19 Glucose Level 119 H 70-105 MG/DL Calcium Level 10.2 H 8.5-10.1 MG/DL Corrected Calcium 9.8 8.5-10.1 MG/DL Magnesium Level 2.2 1.6-2.4 MG/DL Total Bilirubin 0.5 0.1-1.0 MG/DL Aspartate Amino Transf (AST/SGOT) 21 5-34 U/L Alanine Aminotransferase (ALT/SGPT) 27 0-55 U/L Alkaline Phosphatase 72 40-136 U/L Myoglobin 52.1 10.0-92.0 NG/ML Troponin I < 0.028 <0.028 NG/ML Total Protein 7.7 6.4-8.2 GM/DL Albumin 4.5 3.2-4.5 GM/DL Thyroid Stimulating Hormone (TSH) 1.84 0.35-4.94 UIU/ML Free Thyroxine 1.16 0.70-1.48 NG/DL My Orders Orders - LAVON MARION MD Cbc With Automated Diff (12/06/20 16:15) Magnesium (12/06/20 16:15) Chest 1 View, Ap/Pa Only (12/06/20 16:15) Ekg Tracing (12/06/20 16:15) Comprehensive Metabolic Panel (12/06/20 16:15) Myoglobin Serum (12/06/20 16:15) Protime With Inr (12/06/20 16:15) Partial Thromboplastin Time (12/06/20 16:15) O2 (12/06/20 16:15) Monitor-Rhythm Ecg Trace Only (12/06/20 16:15) Lipid Panel (12/07/20 06:00) Ed Iv/Invasive Line Start (12/06/20 16:15) Troponin I (12/06/20 16:15) Diltiazem Drip Pre-Mix (Cardizem Drip Pr (12/06/20 16:30) Diltiazem Injection (Cardizem Injection) (12/06/20 16:30) Thyroid Stimulating Hormone (12/06/20 16:25) Free T4 (Free Thyroxine) (12/06/20 16:25) Lorazepam Injection (Ativan Injection) (12/06/20 17:15) Potassium Chloride (Tablet) (Klor Con Ta (12/06/20 17:15) Apixaban Tablet (Eliquis Tablet) (12/06/20 18:15) Medications Given in ED Current Medications Medications Dose Ordered Sig/Natali Route Start Time Stop Time Status Last Admin Dose Admin Diltiazem HCl 10 mg ONCE ONCE IVP 12/06/20 16:30 12/06/20 16:31 DC 12/06/20 16:38 10 MG Lorazepam 0.5 mg ONCE ONCE IVP 12/06/20 17:15 12/06/20 17:16 DC 12/06/20 17:26 0.5 MG Potassium Chloride 20 meq ONCE ONCE PO 12/06/20 17:15 12/06/20 17:16 DC 12/06/20 17:29 20 MEQ Vital Signs/I&O 12/06/20 15:55 Temp 35.7 Pulse 110 Resp 18 B/P (MAP) 120/77 (91) Pulse Ox 97 O2 Delivery Room Air Blood Pressure Mean: 91 Initial ECG Impression Date: Dec 06, 2020 Initial ECG Impression Time: 16:01 Initial ECG Rate: 132 Initial ECG Rhythm: A Fib/Flutter Initial ECG Intervals: Normal Initial ECG Impression: Atrial Fibrillation w/RVR Comment Atrial fibrillation with RVR. Repolarization abnormality. No obvious ischemic ST elevation or depression. Departure Impression Primary Impression: Atrial fibrillation with RVR Additional Impression: Anxiety Departure-Patient Inst. Decision time for Depature: 19:02 Referrals: GABRIEL BOLTON MD FACP FAC CCDS JEFF BUSTILLO DO (PCP/Family) Primary Care Physician Patient Instructions: Atrial Fibrillation, Anxiety, Adult ED Add. Discharge Instructions: Start your Cardizem CD tomorrow as well as your Eliquis blood thinner. Call Dr. Bolton's office tomorrow morning to schedule a follow-up. Use the Ativan every 6 hours as needed for severe anxiety or panic attacks. If you have repeat episodes of A. fib that are symptomatic or lasting more than 15 to 30 minutes, please return to the emergency room. Call with questions or concerns. Return to care if you have any other worsening of condition. All discharge instructions reviewed with patient and/or family. Voiced understanding. Scripts Apixaban (Eliquis) 5 Mg Tablet 5 MG PO BID, #60 TAB Prov: LAVON MARION MD 12/06/20 Diltiazem HCl (Cardizem Cd) 240 Mg Cap.er.24h 240 MG PO DAILY, #30 CAP Prov: LAVON MARION MD 12/06/20 Work/School Note: Work Release Form Date Seen in the Emergency Department: Dec 06, 2020 Return to Work: Dec 08, 2020 Restrictions: No Restrictions LAVON MARION MD Dec 06, 2020 17:06
[2020-12-06 17:09] LABS: CALCIUM 10.2 MG/DL (8.5-10.1)
[2020-12-06] MEDS ORDERED: KCL 10 MEQ TAB (MICRO K) PO ONE (17:15)
[2020-12-06] MEDS ORDERED: LORazepam INJ 2 MG/ML (ATIVAN) VIAL IVP ONE (17:15)
[2020-12-06] MEDS ORDERED: APIXABAN 5 MG (ELIQUIS) TABLET PO ONE (18:15)
[2020-12-06] MEDS ORDERED: RX-LORAZEPAM (ATIVAN) 0.5 MG TAB PPK#4 PO STA (18:59)
[2020-12-06] MEDS ORDERED: DILT240C86 PO (19:03)
[2020-12-06] MEDS ORDERED: APIX5TAB PO (19:03)
--- NOTE | 2020-12-06 19:18 | Tele-ICU Consult ---
History of Present Illness History of Present Illness Date Seen by Provider: Dec 06, 2020 Time Seen by Provider: 19:13 Date of Admission History of Present Illness 55 y old lady admitted with cc of nimbness, headache; was found to be in A fib with rvr 150; pt was deferred to ED and was started on cardizem drip after a bolus of 10mg. Pt remained hemodynamically stable. Allergies and Home Medications Allergies Coded Allergies: NKANo Known Allergies (Unverified Allergy, Mild, 02/15/09) Home Medications ALPRAZolam 0.25 Mg Tablet, 0.25 MG PO TID PRN for ANXIETY, (Reported) Apixaban 5 Mg Tablet, 5 MG PO BID Prescribed by: LAVON FRANCIS on 12/06/201902 Bupropion HCl 300 Mg Tab.er.24h, 300 MG PO DAILY, (Reported) Diltiazem HCl 240 Mg Cap.er.24h, 240 MG PO DAILY Prescribed by: LAVON FRANCIS on 12/06/201902 Ergocalciferol (Vitamin D2) 50,000 Unit Capsule, 50,000 UNIT PO WEEK, (Reported) Hydrocodone/Acetaminophen 1 Each Tablet, 1 TAB PO Q4-6HR Prescribed by: WILLIAM STODDARD on 05/25/192127 Levothyroxine Sodium 50 Mcg Tablet, 50 MCG PO DAILY, (Reported) Losartan Potassium 100 Mg Tablet, 100 MG PO DAILY, (Reported) Prednisone 20 Mg Tab, 40 MG PO DAILY Prescribed by: WILLIAM STODDARD on 05/25/192127 Past Medical/Social/Family Hx Patient Social History Tobacco Use?: No Use of E-Cig and/or Vaping dev: No Substance use?: No Alcohol Use?: No Pt stated abuse/neglect: No Immunizations Up To Date First/Initial COVID19 Vaccinat: MAY Second COVID19 Vaccination Jon: JUNE Current Status Advance Directives: No Primary Language: Luxembourger Preferred Spoken Language: Luxembourger Sensory deficits: Vision impairment Implanted or Applied Medical D: Orthopedic hardware Past Medical History dede, hypothyroidism Review of Systems Constitutional: see HPI Sepsis Event Evaluation Height, Weight, BMI Height: 5'5.00" Weight: 189lbs. 0.0oz. 85.284694yr; 36.00 BMI Method:Stated Exam Exam Patient acknowledged, consented, and participated in this virtual visit which was conducted using real time audio/video Vital Signs Date Time Temp Pulse Resp B/P (MAP) Pulse Ox O2 Delivery O2 Flow Rate FiO2 12/06/20 15:55 35.7 110 18 120/77 (91) 97 Room Air Height & Weight Height: 5'5.00" Weight: 189lbs. 0.0oz. 85.979033fy; 36.00 BMI Method:Stated General Appearance: No Apparent Distress Capillary Refill: Less Than 3 Seconds Results Lab Laboratory Tests 12/06/20 15:55 Assessment/Plan Assessment/Plan Afib with RVR -continue cardizem pravin reynoso and check tsh DEDE cpap to be resumed DVT prophylaxis LISA ROCHE MD Dec 06, 2020 19:18
[2020-12-06 19:52] VITALS: BP 95/57
== END 2020-12-06 19:52 | disposition home or self-care (01) ==
LOC: EDUNIT# 15:52 → ER 15:53 → ICU 18:13 → UNDOADMIN 18:13
DX: I48.20 Chronic atrial fibrillation, unspecified (principal); F41.9 Anxiety disorder, unspecified; G47.30 Sleep apnea, unspecified; I10 Essential (primary) hypertension; E03.9 Hypothyroidism, unspecified; Z79.52 Long term (current) use of systemic steroids; Z79.890 Hormone replacement therapy; Z79.899 Other long term (current) drug therapy
CPT/HCPCS: 36415; 71045; 80053; 83735; 83874; 84439; 84443; 84484; 85025; 85610; 85730; 93005; 93041; 96365; 96366; 96375

== ENCOUNTER → 2020-12-13 | Outpatient (CLI) | payer BC ==
[~2020-12-13] MED LIST changes: +APIX5TAB PO; +DILT240C86 PO
--- NOTE | 2020-12-13 15:34 | Diagnostic Imaging Report ---
INDICATION: Dyspnea and chest pain. TIME OF EXAM: 3:32 PM. COMPARISON: Correlation is made with prior chest from 03/06/2017. The heart size is normal. The pulmonary vascularity is unremarkable. The lungs are clear. No infiltrate, effusion or pneumothorax is detected. IMPRESSION: No acute cardiopulmonary process is detected. Dictated by: Dictated on workstation # [id number]
[2020-12-13 15:44] LABS: CREATINE KINASE MB 2.1 NG/ML (<6.6)
== END ==
LOC: CARD 14:45
PROVIDERS: ATTEND Family Medicine
DX: R07.9 Chest pain, unspecified (principal); R06.00 Dyspnea, unspecified
CPT/HCPCS: 36415; 71046; 82553; 84484; 93005

== ENCOUNTER 2021-01-02 08:00 | Day surgery (SDC) | payer BC ==
[2021-01-02] VITALS (11 sets, daily range): BP systolic 108–127; BP diastolic 61–80
[~2021-01-02] VITALS: Ht 165 cm; Wt 94.0 kg
[2021-01-02 07:31] LABS: HEMATOCRIT 41 % (35-52); HEMOGLOBIN 13.5 g/dL (11.5-16.0); MEAN CORPUSCULAR HEMOGLOBIN 31 pg (25-34); MEAN CORPUSCULAR HGB CONC 33 g/dL (32-36); MEAN CORPUSCULAR VOLUME 93 fL (80-99); MEAN PLATELET VOLUME 8.8 fL (9.0-12.2); PLATELET COUNT 347 10^3/uL (130-400); WHITE BLOOD COUNT 8.7 10^3/uL (4.3-11.0)
[2021-01-02 07:46] LABS: INR 0.9 (0.8-1.4); PROTHROMBIN TIME PATIENT 12.6 SEC (12.2-14.7)
[2021-01-02 07:50] LABS: ALBUMIN 4.3 GM/DL (3.2-4.5); BILIRUBIN,TOTAL 0.5 MG/DL (0.1-1.0); CALCIUM 9.8 MG/DL (8.5-10.1); CREATININE SERUM 0.79 MG/DL (0.60-1.30); POTASSIUM 3.8 MMOL/L (3.6-5.0); TOTAL PROTEIN 7.2 GM/DL (6.4-8.2)
[~2021-01-02 08:00] MED LIST changes: +HEParin (CATH LAB) 2,000 ML IV ONE; +LIDOCAINE 1% INJ 20 ML 20 ML VIAL ONE; +NS IV 1000 ML 1,000 ML IV SCH; +NS IV 1000 ML 1,000 ML ONE
[2021-01-02] MEDS ORDERED: METO-352 PO (08:10)
[2021-01-02] MEDS ORDERED: ACET325T38 PO (08:10)
[2021-01-02] MEDS ORDERED: MAGN400T39 PO (08:10)
[2021-01-02] MEDS ORDERED: LOSA1TAB23 PO (08:10)
[2021-01-02] MEDS ORDERED: ESCI-2 PO (08:10)
[2021-01-02] MEDS ORDERED: RIVA20TA PO (08:10)
[2021-01-02] MEDS ORDERED: LEVO75CA5 PO (08:10)
[2021-01-02] MEDS ORDERED: MULT-1136 PO (08:10)
[2021-01-02] MEDS ORDERED: POTA-51 PO (08:10)
[2021-01-02] MEDS ORDERED: DILT240C53 PO (08:10)
[2021-01-02] MEDS ORDERED: ATOR20TA66 PO (08:10)
[2021-01-02] MEDS ORDERED: SUMA25TA4 PO (08:10)
[2021-01-02] MEDS ORDERED: MIDAZOLAM 5 MG/5 ML (VERSED) VIAL ONE (08:39)
[2021-01-02] MEDS ORDERED: fentaNYL INJ 100 MCG/2 ML AMP ONE (08:39)
[2021-01-02] MEDS ORDERED: diphenhydrAMINE 50 MG/ML INJ (BENADRYL) ONE (08:53)
--- NOTE | 2021-01-02 09:21 | Cardiac Procedure Note-CS/ASA ---
Pre-Procedure Note Pre-Op Procedure Note H&P Reviewed The H&P was reviewed, patient examined and no changes noted. Date H&P Reviewed: Jan 02, 2021 Time H&P Reviewed: 08:50 Conscious Sedation Pre-Proced Time 08:50 ASA Score 3 For ASA 3 and 4: Consider anesthesia and medical clearance. Also, for patients with a history of failed moderate sedation consider anesthesia. Airway Lungs Heart ASA score ASA 1: a normal healthy patient ASA 2: a patient with a mild systemic disease (mid diabetes, controlled hypertension, obesity ASA 3: a patient with a severe systemic disease that limits activity (angina, COPD, prior Myocardial infarction) ASA 4: a patient with an incapacitating disease that is a constant threat to life (CHF, renal failure) ASA 5: a moribund patient not expected to survive 24 hrs. (ruptured aneurysm) ASA 6: a declared brain- patient whose organs are being harvested. For emergent operations, add the letter E after the classification Mallampati Classification Grade 2 Sedation Plan Analgesia, Amnesia, Plan communicated to team members, Discussed options with patient/fam, Discussed risks with patient/fam The patient is an appropriate candidate to undergo the planned procedure, sedation, and anesthesia. The patient immediately re-assessed prior to indication. GABRIEL STONER MD FACP FAC CCDS Jan 02, 2021 09:21
--- NOTE | 2021-01-02 09:28 | Discharge Inst-Post CATH ---
Discharge Inst-CATH/EP Post Cardiac Cath/EP D/C Inst Follow Up/Plan F/u with Dr Bolton in 1-2 weeks ACTIVITY * Go Home directly and rest. * Limit activity of the leg (or wrist if it was used) for 7 days including aerobics, swimming, jogging, bicycling, etc. * Restrict stair-climbing for 7 days if possible, if not, climb up with your non-cath leg, then bring together on the same step. * Avoid lifting, pushing, pulling or excessive movement of the affected extremity for 7 days. * Customary sexual activity may be resumed after 2 days-use caution not to use a position that strains or causes pain to the affected extremity. * No driving for 24 hours. * NO SMOKING. * Avoid straining for bowel movements for 7 days. * Gentle walking on level ground is allowed. * Returning to work will depend on the type of procedure and the results. Your doctor will discuss this with you. CALL YOUR DOCTOR FOR ANY OF THE FOLLOWING: *If bleeding from the puncture site occurs- Apply gentle pressure to site with clean cloth and call your doctor or EMS. * If a knot or lump forms under the skin, increases in size, or causes pain. * If bruising appears to be worsening or moving further down your leg instead of disappearing. * Temperature above 101 F. CARE OF YOUR GROIN INCISION; * Bruising or purple discoloration of the skin near the puncture site is common. * You may shower only, no bathtub bathing for 5 days. Be careful to avoid slipping as your leg may feel stiff. * If a closure device was used on your femoral artery, please see the attached guide regarding care of the device and your leg. * Leave dressing on FOR 24 hours. CARE OF YOUR WRIST INCISION; * Bruising or purple discoloration of the skin near the puncture site is common. * You may shower. * DO NOT submerge wrist. * Leave dressing on FOR 24 hours. GABRIEL BOLTON [facility] CCD[facility] Jan 02, 2021 09:28
--- NOTE | 2021-01-02 09:28 | Discharge Inst-Cardiology ---
Discharge Inst-Cardiac Discharge Medications Continued Medications: Acetaminophen (Tylenol) 325 Mg Tablet 650 MG PO Q6H PRN for PAIN-MILD (1-4), TAB Atorvastatin Calcium (Atorvastatin Calcium) 20 Mg Tablet 20 MG PO HS, TAB Diltiazem HCl (Cartia Xt) 240 Mg Cap.er.24h 240 MG PO DAILY, CAP Escitalopram Oxalate (Escitalopram Oxalate) 10 Mg Tablet 10 MG PO HS, TAB Levothyroxine Sodium (Levothyroxine) 75 Mcg Capsule 75 MCG PO DAILY, CAP Losartan/Hydrochlorothiazide (Losartan-Hctz 100-25 mg Tab) 1 Each Tablet 1 EACH PO DAILY, TAB Magnesium Oxide (Magnesium) 400 Mg Tablet 400 MG PO DAILY, TAB Metoprolol Succinate (Toprol Xl) 50 Mg Tab.er.24h 50 MG PO HS, TAB Multivitamin (Multivitamin) 1 Each Tablet 1 EACH PO DAILY, TAB Potassium Chloride (Potassium Chloride) 20 Meq Tablet.er 20 MEQ PO DAILY, TAB Rivaroxaban (Xarelto) 20 Mg Tablet 20 MG PO HS, TAB Sumatriptan Succinate (Sumatriptan Succinate) 25 Mg Tablet 25 MG PO DAILY PRN for HEADACHE, TAB GABRIEL STONER MD FACP FAC CCDS Jan 02, 2021 09:28
[2021-01-02] MEDS ORDERED: PATIENT MAY USE OWN MEDS, ALL PO SCH (09:30)
[2021-01-02] MEDS ORDERED: NS IV 1000 ML 1,000 ML IV SCH (09:30)
--- NOTE | 2021-01-02 10:30 | CARDIAC CATHETERIZATION ---
DATE OF SERVICE: 01/02/2021 CARDIAC CATHETERIZATION REPORT The patient is a 55-year-old lady, who has been experiencing chest discomfort, shortness of breath, and palpitations. Her electronic watch has recorded frequent premature ventricular contractions during her symptomatic episodes. She has risk factors for coronary artery disease. Cardiac catheterization was carried out today after having obtained an informed consent. DESCRIPTION OF PROCEDURE: She was brought to the cardiac catheterization laboratory in a fasting state. Right groin was prepared and draped in the usual sterile fashion. Lidocaine 1% was used for local anesthesia. Modified Seldinger technique was used to advance a 5-Faroese sheath in right femoral artery, 5-Faroese JL4 catheter was used for left coronary angiography, 5-Faroese JR4 catheter was used for right coronary angiography, 5-Faroese pigtail catheter was used for left heart catheterization and left ventricular angiography. Angiography of the right femoral artery was carried out through the sheath and Mynx was used to achieve hemostasis following sheath removal. HEMODYNAMICS: Left ventricular end-diastolic pressure following coronary angiography was 19 mmHg. There was no significant pressure gradient on pullback across the aortic valve. There was no significant pressure on pullback across the aortic valve. CORONARY ANGIOGRAPHY: Left main coronary artery, left anterior descending artery, left circumflex artery, right coronary artery do not exhibit any angiographically significant disease. Right coronary artery is dominant. LEFT VENTRICULAR ANGIOGRAPHY: Left ventricular angiography was carried out in the right anterior oblique projection. Global left ventricular systolic function with normal regional wall motion abnormalities seen. Left ventricular ejection fraction approximately 60%. There was mild mitral regurgitation, but that appeared to be catheter-induced. CONCLUSIONS: 1. No angiographically significant coronary artery disease. 2. Normal global left ventricular systolic function with ejection fraction of 60%. 3. Left ventricular end-diastolic pressure 19 mmHg. DISCUSSION AND RECOMMENDATIONS: Based on results of the study, it appears appropriate to continue a conservative approach. Outpatient followup is advised. Job ID: [id number] DocumentID: [id number] Dictated Date: 01/02/2021 09:25:49 Insurance Territory Manager Date: 01/02/2021 10:30:11 Dictated By: GABRIEL STONER MD, MA, FACP, FACC,
== END 2021-01-02 13:20 | disposition home or self-care (01) ==
LOC: CATH 08:00 → SDC 09:45 → CATH 13:20
PROVIDERS: ATTEND Internal Medicine Cardiovascular Disease
DX: I20.9 Angina pectoris, unspecified (principal); R06.02 Shortness of breath; R00.2 Palpitations; R06.09 Other forms of dyspnea; G47.30 Sleep apnea, unspecified; I48.0 Paroxysmal atrial fibrillation; I49.3 Ventricular premature depolarization; I10 Essential (primary) hypertension; G89.29 Other chronic pain; M54.9 Dorsalgia, unspecified; M79.89 Other specified soft tissue disorders; F41.9 Anxiety disorder, unspecified; Z79.890 Hormone replacement therapy; Z79.01 Long term (current) use of anticoagulants; Z90.710 Acquired absence of both cervix and uterus; Z79.899 Other long term (current) drug therapy; Z80.9 Family history of malignant neoplasm, unspecified
CPT/HCPCS: 36415; 80053; 80061; 85027; 85610; 85730; 87081

== ENCOUNTER 2021-01-09 15:44 | Emergency (ER) | payer BC ==
[~2021-01-09] VITALS: Ht 162 cm; Wt 94.0 kg
[~2021-01-09 15:44] MED LIST changes: +ACET325T38 PO; +ATOR20TA66 PO; +DILT240C53 PO; +ESCI-2 PO; -HEParin (CATH LAB) 2,000 ML IV ONE; +LEVO75CA5 PO; -LIDOCAINE 1% INJ 20 ML 20 ML VIAL ONE; +LOSA1TAB23 PO; +MAGN400T39 PO; +METO-352 PO; +MULT-1136 PO; -NS IV 1000 ML 1,000 ML IV SCH; -NS IV 1000 ML 1,000 ML ONE; +POTA-51 PO; +RIVA20TA PO; +SUMA25TA4 PO
[2021-01-09] MEDS ORDERED: ASPIRIN 81 MG CHEW (CHILDREN'S ASA) PO ONE (16:00)
[2021-01-09] MEDS ORDERED: LORazepam INJ 2 MG/ML (ATIVAN) VIAL IVP PRN (16:00)
--- NOTE | 2021-01-09 16:03 | ED Cardiac General ---
History of Present Illness General Chief Complaint: Cardiac/General Problems Stated Complaint: LOW HR, CP/NECK PAIN Nursing Triage Note: AMBULATED TO ROOM 06 WITH COMPLAINTS OF A LOW HEART RATE. STATES SHE HAD A HEART CATH ON FRIDAY AND NOTICED HER HEART RATE BEING LOW ON SAT ALONG WITH WEAKNESS AND DIZZINESS. Source: patient Exam Limitations: no limitations (WILLIAM STODDARD APRN) History of Present Illness Date Seen by Provider: Jan 09, 2021 Time Seen by Provider: 15:57 Initial Comments To ER with reports of low heart rate according to her apple watch. She believes it to have been less than 50. She has had symptoms present since 01/06/2021. She was recently started on diltiazem 240 mg daily as well as metoprolol 50 mg daily for an episode of atrial fibrillation with rapid ve ntricular response. She is on Xarelto. On 01/02/2021 she had a cardiac catheterization here showing no significant coronary disease. She has had sensations of chest pressure that radiates up into her neck and lightheadedness upon bending over or turning around quickly since Friday. She does report that she feels anxious. Timing/Duration: 4-6 hours Severity: moderate Location: central Prior CP/Workup: no prior chest pain NTG SL DIGITAL MEDIA MANAGER: No ASA po DIGITAL MEDIA MANAGER: No Associated Systoms: Denies Symptoms (WILLIAM STODDARD APRN) Allergies and Home Medications Allergies Coded Allergies: NKANo Known Allergies (Unverified Allergy, Mild, 02/15/09) Patient Home Medication List Home Medication List Reviewed: Yes (WILLIAM STODDARD APRN) Acetaminophen (Tylenol) 325 Mg Tablet, 650 MG PO Q6H PRN for PAIN-MILD (1-4), (Reported) Entered as Reported by: ROGERIO KULKARNI on 01/02/21 0810 Atorvastatin Calcium (Atorvastatin Calcium) 20 Mg Tablet, 20 MG PO HS, (Reported) Entered as Reported by: ROGERIO KULKARNI on 01/02/21 0810 Diltiazem HCl (Cartia Xt) 240 Mg Cap.er.24h, 240 MG PO DAILY, (Reported) Entered as Reported by: ROGERIO KULKARNI on 01/02/21 0810 Diltiazem HCl (Diltiazem 24Hr Cd) 180 Mg Cap.er.24h, 180 MG PO DAILY Prescribed by: WILLIAM STODDARD on 01/09/21 1703 Escitalopram Oxalate (Escitalopram Oxalate) 10 Mg Tablet, 10 MG PO HS, (Reported) Entered as Reported by: ROGERIO KULKARNI on 01/02/21 08 Levothyroxine Sodium (Levothyroxine) 75 Mcg Capsule, 75 MCG PO DAILY, (Reported) Entered as Reported by: ROGERIO KULKARNI on 01/02/21 08 Losartan/Hydrochlorothiazide (Losartan-Hctz 100-25 mg Tab) 1 Each Tablet, 1 EACH PO DAILY, (Reported) Entered as Reported by: ROGERIO KULKARNI on 01/02/21 08 Magnesium Oxide (Magnesium) 400 Mg Tablet, 400 MG PO DAILY, (Reported) Entered as Reported by: ROGERIO KULKARNI on 01/02/21 08 Metoprolol Succinate (Toprol Xl) 50 Mg Tab.er.24h, 50 MG PO HS, (Reported) Entered as Reported by: ROGERIO KULKARNI on 01/02/21 08 Multivitamin (Multivitamin) 1 Each Tablet, 1 EACH PO DAILY, (Reported) Entered as Reported by: ROGERIO KULKARNI on 01/02/21 08 Potassium Chloride (Potassium Chloride) 20 Meq Tablet.er, 20 MEQ PO DAILY, (Reported) Entered as Reported by: ROGERIO KULKARNI on 01/02/21 08 Rivaroxaban (Xarelto) 20 Mg Tablet, 20 MG PO HS, (Reported) Entered as Reported by: ROGERIO KULKARNI on 01/02/21809 Sumatriptan Succinate (Sumatriptan Succinate) 25 Mg Tablet, 25 MG PO DAILY PRN for HEADACHE, (Reported) Entered as Reported by: ROGERIO KULKARNI on 01/02/21809 Review of Systems Review of Systems Constitutional: see HPI EENTM: No Symptoms Reported Respiratory: No Symptoms Reported Cardiovascular: No Symptoms Reported Gastrointestinal: No Symptoms Reported Genitourinary: No Symptoms Reported Musculoskeletal: no symptoms reported Skin: no symptoms reported Psychiatric/Neurological: No Symptoms Reported Endocrine: No Symptoms Reported Hematologic/Lymphatic: No Symptoms Reported (WILLIAM STODDARD APRN) Past Wlefhxy-Cxtxjv-Xmfrsv Hx Patient Social History Tobacco Use?: No Pt feels they are or have been: No (WILLIAM STODDARD APRN) Immunizations Up To Date Second COVID19 Vaccination Jon: 07/09 COVID19 Vaccine Bull Driver: TERELL (WILLIAM STODDARD APRN) Seasonal Allergies Seasonal Allergies: Yes (WILLIAM STODDARD APRN) Past Medical History Surgeries: Yes (C/S X4, ) Gallbladder, Hysterectomy, Orthopedic Respiratory: Yes Sleep Apnea Currently Using CPAP: Yes Cardiac: Yes Hypertension Neurological: No Neuropathy 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 0.0oz. 85.906682gy; 35.00 BMI Method:Stated General Appearance: No Apparent Distress, WD/WN Neck: Full Range of Motion, Normal Inspection Respiratory: Normal Breath Sounds, No Accessory Muscle Use, No Respiratory Distress Cardiovascular: Regular Rate, Rhythm, Normal Peripheral Pulses Gastrointestinal: Normal Bowel Sounds, Non Tender, Soft Extremity: Normal Capillary Refill, Normal Inspection Neurologic/Psychiatric: Alert, Oriented x3 Skin: Normal Color, Warm/Dry (WILLIAM STODDARD APRN) Progress/Results/Core Measures Results/Orders Lab Results Laboratory Tests Test 01/09/21 15:50 Range/Units White Blood Count 9.9 4.3-11.0 10^3/uL Red Blood Count 4.18 3.80-5.11 10^6/uL Hemoglobin 12.9 11.5-16.0 g/dL Hematocrit 39 35-52 % Mean Corpuscular Volume 94 80-99 fL Mean Corpuscular Hemoglobin 31 25-34 pg Mean Corpuscular Hemoglobin Concent 33 32-36 g/dL Red Cell Distribution Width 13.4 10.0-14.5 % Platelet Count 350 130-400 10^3/uL Mean Platelet Volume 8.8 L 9.0-12.2 fL Immature Granulocyte % (Auto) 0 % Neutrophils (%) (Auto) 55 42-75 % Lymphocytes (%) (Auto) 38 12-44 % Monocytes (%) (Auto) 7 0-12 % Eosinophils (%) (Auto) 1 0-10 % Basophils (%) (Auto) 0 0-10 % Neutrophils # (Auto) 5.4 1.8-7.8 X 10^3 Lymphocytes # (Auto) 3.7 1.0-4.0 X 10^3 Monocytes # (Auto) 0.6 0.0-1.0 X 10^3 Eosinophils # (Auto) 0.1 0.0-0.3 10^3/uL Basophils # (Auto) 0.0 0.0-0.1 10^3/uL Immature Granulocyte # (Auto) 0.0 0.0-0.1 10^3/uL Prothrombin Time 14.6 12.2-14.7 SEC INR Comment 1.1 0.8-1.4 Activated Partial Thromboplast Time 30 24-35 SEC D-Dimer 0.29 0.00-0.49 UG/ML Sodium Level 141 135-145 MMOL/L Potassium Level 3.8 3.6-5.0 MMOL/L Chloride Level 103 98-107 MMOL/L Carbon Dioxide Level 26 21-32 MMOL/L Anion Gap 12 5-14 MMOL/L Blood Urea Nitrogen 21 H 7-18 MG/DL Creatinine 0.82 0.60-1.30 MG/DL Estimat Glomerular Filtration Rate 72 BUN/Creatinine Ratio 26 Glucose Level 93 70-105 MG/DL Calcium Level 9.7 8.5-10.1 MG/DL Corrected Calcium 9.5 8.5-10.1 MG/DL Magnesium Level 2.3 1.6-2.4 MG/DL Total Bilirubin 0.3 0.1-1.0 MG/DL Aspartate Amino Transf (AST/SGOT) 14 5-34 U/L Alanine Aminotransferase (ALT/SGPT) 35 0-55 U/L Alkaline Phosphatase 68 40-136 U/L Total Creatine Kinase 94 29-168 U/L Creatine Kinase MB 1.7 <6.6 NG/ML Myoglobin 31.5 10.0-92.0 NG/ML Troponin I < 0.028 <0.028 NG/ML B-Type Natriuretic Peptide 61.6 <100.0 PG/ML Total Protein 7.4 6.4-8.2 GM/DL Albumin 4.3 3.2-4.5 GM/DL Amylase Level 55 25-125 U/L Lipase 72 8-78 U/L (KAREN DESIR DO) My Orders Orders - KAREN DESIR DO Cbc With Automated Diff (01/09/21 15:49) Magnesium (01/09/21 15:49) Chest 1 View, Ap/Pa Only (01/09/21 15:49) Ekg Tracing (01/09/21 15:49) Comprehensive Metabolic Panel (01/09/21 15:49) Myoglobin Serum (01/09/21 15:49) Protime With Inr (01/09/21 15:49) Partial Thromboplastin Time (01/09/21 15:49) O2 (01/09/21 15:49) Monitor-Rhythm Ecg Trace Only (01/09/21 15:49) Ed Iv/Invasive Line Start (01/09/21 15:49) Creatine Kinase (01/09/21 15:49) Creatine Kinase Mb (01/09/21 15:49) Lipase (01/09/21 15:49) Amylase (01/09/21 15:49) BNP (01/09/21 15:49) Troponin I (01/09/21 15:49) Aspirin Chewable Tablet (Baby Aspirin Ch (01/09/21 16:00) (KAREN DESIR DO) Vital Signs/I&O 01/09/21 01/09/21 15:45 17:16 Pulse 66 59 Resp 16 49 B/P (MAP) 136/76 (96) 109/62 Pulse Ox 99 O2 Delivery Room Air Room Air (KAREN DESIR DO) Departure Communication (Admissions) Her EKG shows sinus rhythm rate of 52. QTc 402 ms QRS [address] segment changes and no ectopy. Most of the time on the environmental monitoring technician her heart rate is 55-70. 1704-will reduce her diltiazem dosage from 240 mg daily down to 180 mg daily. This was the most recent prescription and her symptoms started shortly after starting this medication. Anxiety is playing a large role in her symptoms though perhaps medication side effect is as well. Given the slight bradycardia with a rate in the mid to upper 50s here she can tolerate a lower dose of diltiazem. (WILLIAM STODDARD APRN) Impression Primary Impression: Anxiety Additional Impression: Lightheadedness Disposition: 01 HOME, SELF-CARE Condition: Stable Departure-Patient Inst. Decision time for Depature: 16:51 (WILLIAM STODDARD APRN) Referrals: JEFF BUSTLILO DO (PCP/Family) Primary Care Physician Patient Instructions: Anxiety, Adult ED, Side Effects From Medicines, Dizziness, Nonvertigo, (DC) Add. Discharge Instructions: . Reduce your diltiazem (cardia) dose from 240 mg daily what you are taking currently down to the new dose of 180 mg daily. This prescription is at the pharmacy. Do not take both of these together. Take the 180 mg tablet instead of the 240 mg tablet. All discharge instructions reviewed with patient and/or family. Voiced understanding. Scripts Diltiazem HCl (Diltiazem 24Hr Cd) 180 Mg Cap.er.24h 180 MG PO DAILY, #10 CAP Prov: WILLIAM STODDARD APRN 01/09/21 ATTENDING PHYSICIAN NOTE: I WAS PHYSICALLY PRESENT ER PHYSICIAN WHEN THIS PATIENT WAS IN ER, BUT I WAS NOT INVOLVED IN DECISION MAKING OR ANY CARE OF THIS PATIENT. (KAREN DESIR DO) WILLIAM STODDARD APRN Jan 09, 2021 16:02 KAREN DESIR DO Jan 11, 2021 06:39
[2021-01-09 16:04] LABS: BASOPHILS % (AUTO) 0 % (0-10); EOSINOPHILS # (AUTO) 0.1 10^3/uL (0.0-0.3); EOSINOPHILS % (AUTO) 1 % (0-10); HEMATOCRIT 39 % (35-52); HEMOGLOBIN 12.9 g/dL (11.5-16.0); LYMPHOCYTES # (AUTO) 3.7 X 10^3 (1.0-4.0); LYMPHOCYTES % (AUTO) 38 % (12-44); MEAN CORPUSCULAR HEMOGLOBIN 31 pg (25-34); MEAN CORPUSCULAR HGB CONC 33 g/dL (32-36); MEAN CORPUSCULAR VOLUME 94 fL (80-99); MEAN PLATELET VOLUME 8.8 fL (9.0-12.2); MONOCYTES # (AUTO) 0.6 X 10^3 (0.0-1.0); MONOCYTES % (AUTO) 7 % (0-12); NEUTROPHILS # (AUTO) 5.4 X 10^3 (1.8-7.8); NEUTROPHILS % (AUTO) 55 % (42-75); PLATELET COUNT 350 10^3/uL (130-400); WHITE BLOOD COUNT 9.9 10^3/uL (4.3-11.0)
[2021-01-09 16:18] LABS: ALBUMIN 4.3 GM/DL (3.2-4.5)
[2021-01-09 16:19] LABS: POTASSIUM 3.8 MMOL/L (3.6-5.0)
[2021-01-09 16:20] LABS: CALCIUM 9.7 MG/DL (8.5-10.1)
[2021-01-09 16:21] LABS: INR 1.1 (0.8-1.4); PROTHROMBIN TIME PATIENT 14.6 SEC (12.2-14.7); TOTAL PROTEIN 7.4 GM/DL (6.4-8.2)
[2021-01-09 16:23] LABS: BILIRUBIN,TOTAL 0.3 MG/DL (0.1-1.0)
[2021-01-09 16:25] LABS: CREATININE SERUM 0.82 MG/DL (0.60-1.30)
[2021-01-09 16:28] LABS: MAGNESIUM 2.3 MG/DL (1.6-2.4)
--- NOTE | 2021-01-09 16:29 | Diagnostic Imaging Report ---
EXAMINATION: Chest radiograph, portable AP view. DATE: 01/09/2021 at 4:09 PM. INDICATION: 55-year-old female, chest pain. COMPARISON: December 06, 2020. FINDINGS: The heart size and mediastinal contours are unchanged. There is no identified pneumothorax. There is no large pleural effusion. There is no identified focal airspace consolidation. IMPRESSION: No identified acute cardiopulmonary abnormality. Dictated by: Dictated on workstation # [id number]
[2021-01-09 16:36] LABS: CREATINE KINASE MB 1.7 NG/ML (<6.6)
--- NOTE | 2021-01-09 16:39 | Diagnostic Imaging Report ---
EXAMINATION: US Lower Extremity Venous Duplex Left. TECHNIQUE: Multiple real-time grayscale images were obtained over the left lower extremity in various projections. Additional spectral analysis and color Doppler duplex images were also obtained. HISTORY: Swelling. COMPARISON: None available. FINDINGS: The left common femoral vein, deep femoral vein, superficial femoral vein and popliteal vein are patent with normal marin scale and doppler appearance. There is normal respiratory variation and augmentation. IMPRESSION: 1. No DVT of the left lower extremity. Dictated by: Dictated on workstation # [id number]
[2021-01-09] MEDS ORDERED: DILT-28 PO (17:03)
[2021-01-09 17:16] VITALS: BP 109/62
== END 2021-01-09 17:16 | disposition home or self-care (01) ==
LOC: EDUNIT# 15:44 → ER 15:46
DX: F41.9 Anxiety disorder, unspecified (principal); R42 Dizziness and giddiness; G47.30 Sleep apnea, unspecified; I10 Essential (primary) hypertension; E03.9 Hypothyroidism, unspecified; I48.91 Unspecified atrial fibrillation; Z79.890 Hormone replacement therapy; Z79.01 Long term (current) use of anticoagulants; Z79.899 Other long term (current) drug therapy
CPT/HCPCS: 36415; 71045; 80053; 82150; 82550; 82553; 83690; 83735; 83874; 83880; 84484; 85025; 85379; 85610; 85730; 93005; 93041

== ENCOUNTER → 2021-01-22 | Outpatient (CLI) | payer BC ==
[~2021-01-22] MED LIST changes: +DILT-28 PO
== END ==
LOC: CARD 15:00
PROVIDERS: ATTEND Internal Medicine Cardiovascular Disease
DX: R06.00 Dyspnea, unspecified (principal)
CPT/HCPCS: 93306

== ENCOUNTER 2021-03-11 10:14 | Emergency (ER) | payer BC ==
[~2021-03-11] VITALS: Ht 162 cm; Wt 95.0 kg
[2021-03-11] MEDS ORDERED: NS IV 500 ML 500 ML IV ONE (10:30)
[2021-03-11] MEDS ORDERED: diphenhydrAMINE 50 MG/ML INJ (BENADRYL) IVP ONE (10:30)
[2021-03-11] MEDS ORDERED: meTOprolol 5 MG/5 ML (LOPRESSOR) VIAL IV ONE (10:30)
[2021-03-11] MEDS ORDERED: PROMETHAZINE INJ 25 MG/ML (PHENERGAN) AMP IVP ONE (10:30)
--- NOTE | 2021-03-11 10:35 | ED Cardiac General ---
History of Present Illness General Chief Complaint: Cardiac/General Problems Stated Complaint: IRR HEART RATE Source: patient, spouse Exam Limitations: no limitations History of Present Illness Date Seen by Provider: Mar 11, 2021 Time Seen by Provider: 10:21 Initial Comments Patient to the ER by private conveyance from home with chief complaint of irregular fast heart rate, shortness of air tiredness for the past day. She says she has a history of atrial fibrillation and it has been in and out for the past day. She is under the care of Dr. Bolton on Xarelto, flecainide and metoprolol. She did take her flecainide this morning. She is not having chest pain but she is having headache. She has a history of migraines so she took some Tylenol, ibuprofen throughout the night as well as Imitrex without relief of her throbbing headache. She is also following with cardiology at [facility] and they are attempting to chemically convert her. She has not had a cardioversion before. She has been on Cartia before however she says it made her jaw and neck feel uncomfortable so she does not take it anymore. She states she is not against taking it for short-term to get her heart rhythm under control. Echocardiogram in January [address] Bolton showing EF 55 to 65%. Patient was in the ER last month for relative bradycardia in the 50s to 70s and anxiety and had her diltiazem reduced at that time. Allergies and Home Medications Allergies Coded Allergies: NKANo Known Allergies (Unverified Allergy, Mild, 02/15/09) Patient Home Medication List Home Medication List Reviewed: Yes Acetaminophen (Tylenol) 325 Mg Tablet, 650 MG PO Q6H PRN for PAIN-MILD (1-4), (Reported) Entered as Reported by: ROGERIO KULKARNI on 01/02/21 08 Atorvastatin Calcium (Atorvastatin Calcium) 20 Mg Tablet, 20 MG PO HS, (Reported) Entered as Reported by: ROGERIO KULKARNI on 01/02/21809 Diltiazem HCl (Cartia Xt) 240 Mg Cap.er.24h, 240 MG PO DAILY, (Reported) Entered as Reported by: ROGERIO KULKARNI on 01/02/21809 Diltiazem HCl (Diltiazem 24Hr Cd) 180 Mg Cap.er.24h, 180 MG PO DAILY Prescribed by: WILLIAM STODDARD on 01/09/21 170 Escitalopram Oxalate (Escitalopram Oxalate) 10 Mg Tablet, 10 MG PO HS, (Reported) Entered as Reported by: ROGERIO KULKARNI on 01/02/21809 Levothyroxine Sodium (Levothyroxine) 75 Mcg Capsule, 75 MCG PO DAILY, (Reported) Entered as Reported by: ROGERIO KULKARNI on 01/02/21809 Losartan/Hydrochlorothiazide (Losartan-Hctz 100-25 mg Tab) 1 Each Tablet, 1 EACH PO DAILY, (Reported) Entered as Reported by: ROGERIO KULKARNI on 01/02/21809 Magnesium Oxide (Magnesium) 400 Mg Tablet, 400 MG PO DAILY, (Reported) Entered as Reported by: ROGERIO KULKARNI on 01/02/21809 Metoprolol Succinate (Toprol Xl) 50 Mg Tab.er.24h, 50 MG PO HS, (Reported) Entered as Reported by: ROGERIO KULKARNI on 01/02/21809 Multivitamin (Multivitamin) 1 Each Tablet, 1 EACH PO DAILY, (Reported) Entered as Reported by: ROGERIO KULKARNI on 01/02/21809 Potassium Chloride (Potassium Chloride) 20 Meq Tablet.er, 20 MEQ PO DAILY, (Reported) Entered as Reported by: ROGERIO KULKARNI on 01/02/21809 Rivaroxaban (Xarelto) 20 Mg Tablet, 20 MG PO HS, (Reported) Entered as Reported by: ROGERIO KULKARNI on 01/02/21809 Sumatriptan Succinate (Sumatriptan Succinate) 25 Mg Tablet, 25 MG PO DAILY PRN for HEADACHE, (Reported) Entered as Reported by: ROGERIO KULKARNI on 01/02/21809 Review of Systems Review of Systems Constitutional: No chills, No diaphoresis EENTM: No Blurred Vision, No Double Vision Respiratory: Denies Cough, Denies Shortness of Air Cardiovascular: Denies Chest Pain; Irregular Heart Rate, Lightheadedness, Palpitations Gastrointestinal: Denies Abdominal Pain, Denies Constipated, Denies Diarrhea Genitourinary: Denies Burning, Denies Discharge Musculoskeletal: No back pain, No joint pain Skin: No pruritus, No rash Psychiatric/Neurological: Headache; Denies Numbness; Paresthesia (Legs matthew ateral) All Other Systems Reviewed Negative Unless Noted: Yes Past Hdnhgsj-Wwhiwq-Ijceza Hx Patient Social History Tobacco Use?: No Use of E-Cig and/or Vaping dev: No Substance use?: No Alcohol Use?: No Immunizations Up To Date Second COVID19 Vaccination Jon: 07/09 Seasonal Allergies Seasonal Allergies: Yes Past Medical History Surgeries: Yes (C/S X4, ) Gallbladder, Hysterectomy, Orthopedic Respiratory: Yes Sleep Apnea Currently Using CPAP: Yes Cardiac: Yes Hypertension Neurological: No Neuropathy 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 0.0oz. 85.510670ma; 35.00 BMI Method:Stated General Appearance: No Apparent Distress, WD/WN HEENT: PERRL/EOMI, Pharynx Normal; No Moist Mucous Membranes (Dry oral mucosa) Neck: Full Range of Motion, Normal Inspection Respiratory: Lungs Clear, Normal Breath Sounds, No Accessory Muscle Use, No Respiratory Distress Cardiovascular: No Edema, Normal Peripheral Pulses, Irregularly Irregular, Tachycardia (120) Extremity: Normal Capillary Refill, Normal Inspection, No Pedal Edema Neurologic/Psychiatric: Alert, Oriented x3, Other (Anxious affect) Skin: Normal Color, Warm/Dry Progress/Results/Core Measures Results/Orders Lab Results Laboratory Tests Test 03/11/21 10:27 03/11/21 10:59 Range/Units White Blood Count 8.3 4.3-11.0 10^3/uL Red Blood Count 4.33 3.80-5.11 10^6/uL Hemoglobin 13.3 11.5-16.0 g/dL Hematocrit 40 35-52 % Mean Corpuscular Volume 93 80-99 fL Mean Corpuscular Hemoglobin 31 25-34 pg Mean Corpuscular Hemoglobin Concent 33 32-36 g/dL Red Cell Distribution Width 12.7 10.0-14.5 % Platelet Count 336 130-400 10^3/uL Mean Platelet Volume 9.4 9.0-12.2 fL Immature Granulocyte % (Auto) 0 % Neutrophils (%) (Auto) 56 42-75 % Lymphocytes (%) (Auto) 36 12-44 % Monocytes (%) (Auto) 5 0-12 % Eosinophils (%) (Auto) 1 0-10 % Basophils (%) (Auto) 0 0-10 % Neutrophils # (Auto) 4.7 1.8-7.8 10^3/uL Lymphocytes # (Auto) 3.0 1.0-4.0 10^3/uL Monocytes # (Auto) 0.4 0.0-1.0 10^3/uL Eosinophils # (Auto) 0.1 0.0-0.3 10^3/uL Basophils # (Auto) 0.0 0.0-0.1 10^3/uL Immature Granulocyte # (Auto) 0.0 0.0-0.1 10^3/uL Prothrombin Time 15.9 H 12.2-14.7 SEC INR Comment 1.2 0.8-1.4 Sodium Level 141 135-145 MMOL/L Potassium Level 4.0 3.6-5.0 MMOL/L Chloride Level 105 98-107 MMOL/L Carbon Dioxide Level 23 21-32 MMOL/L Anion Gap 13 5-14 MMOL/L Blood Urea Nitrogen 14 7-18 MG/DL Creatinine 0.83 0.60-1.30 MG/DL Estimat Glomerular Filtration Rate 71 BUN/Creatinine Ratio 17 Glucose Level 99 70-105 MG/DL Calcium Level 9.3 8.5-10.1 MG/DL Influenza Type A (RT-PCR) Not Detected Not Detecte Influenza Type B (RT-PCR) Not Detected Not Detecte SARS-CoV-2 RNA (RT-PCR) Not Detected Not Detecte My Orders Orders - SHERRY ATKINS Continuous Ekg Monitoring (03/11/21 10:17) Ekg Tracing (03/11/21 10:17) Metoprolol Tartrate Injection (Lopressor (03/11/21 10:30) Promethazine Injection (Phenergan Injec (03/11/21 10:30) Diphenhydramine Injection (Benadryl Inje (03/11/21 10:30) Ed Iv/Invasive Line Start (03/11/21 10:27) Ns Iv 500 Ml (Sodium Chloride 0.9%) (03/11/21 10:30) Cbc With Automated Diff (03/11/21 10:27) Basic Metabolic Panel (03/11/21 10:27) Protime With Inr (03/11/21 10:27) Chest 1 View, Ap/Pa Only (03/11/21 10:29) Covid 19 Inhouse Test (03/11/21 10:59) Influenza A And B By Pcr (03/11/21 10:59) Medications Given in ED Current Medications Medications Dose Ordered Sig/Natali Route Start Time Stop Time Status Last Admin Dose Admin Diphenhydramine HCl 25 mg ONCE ONCE IVP 03/11/21 10:30 03/11/21 10:31 DC 03/11/21 10:41 25 MG Metoprolol Tartrate 5 mg ONCE ONCE IV 03/11/21 10:30 03/11/21 10:31 DC 03/11/21 10:38 5 MG Promethazine HCl 25 mg ONCE ONCE IVP 03/11/21 10:30 03/11/21 10:31 DC 03/11/21 10:44 25 MG Sodium Chloride 500 ml @ 0 mls/hr Q0M ONCE IV 03/11/21 10:30 03/11/21 10:31 DC 03/11/21 10:44 500 MLS/HR Vital Signs/I&O 03/11/21 03/11/21 03/11/21 10:18 10:52 11:43 Temp 36.0 Pulse 99 56 63 Resp 18 18 18 B/P (MAP) 139/104 (116) 115/78 107/66 Pulse Ox 94 94 97 O2 Delivery Room Air Room Air Room Air Progress Progress Note #1: Time: 10:33 Progress Note Patient appears to be in atrial fibrillation with rapid ventricular response. Since she does not care for cardia we will try metoprolol IV first. For her anxiety and headache we will try Phenergan and Benadryl. 500 cc fluid bolus to address her relative mild dehydration state. If this does not work then will consider using Cardizem and talk to cardiology. Otherwise aseptic vital signs. Progress Note #2: Time: 10:58 Progress Note Patient's headaches a little better. Her heart rate is now into a sinus rhythm around 60. She is not having any nausea. She does have a little infiltrate on her chest that is not explained. Plan to give her a Covid and flu swab just to see if that is the case. This might also explain her persistent headache. Suspect she is in a prodromal viral phase. Initial ECG Impression Date: Mar 11, 2021 Initial ECG Impression Time: 10:21 Initial ECG Rate: 129 Initial ECG Rhythm: A Fib/Flutter Initial ECG Intervals: QT (468) Initial ECG Impression: Atrial Fibrillation w/RVR Comment Atrial fibrillation with rapid ventricular response. Diagnostic Imaging Diagonstic Imaging: Xray Plain Films/CT/US/NM/MRI: chest Comments NAME: JONNY AHMADI MED REC#: [id number] PT STATUS: REG ER : 1965 PHYSICIAN: SHERRY ATKINS MD ADMIT DATE: 03/11/21/ER Draft Date of Exam:03/11/21 CHEST 1 VIEW, AP/PA ONLY INDICATION: Shortness of breath and irregular heartbeat. COMPARISON is made with a prior study from January 092020. FINDINGS: The lung volumes are diminished. There are patchy opacities demonstrated within the medial right lung base and adjacent to the left heart border that may reflect atelectasis or developing infiltrate. Heart size is unchanged. The central pulmonary vascularity appears appropriate without evidence of current edema or failure. There is no significant effusion or evidence of a pneumothorax. IMPRESSION: 1. Patchy basilar opacities may reflect atelectasis or early infiltrate. 2. No current findings of edema or failure. Dictated on workstation # [id number] Dict: 03/11/21 1046 Trans: 03/11/21 1049 [facility] [id number] Interpreted by: JERRY PATEL MD Electronically signed by: Reviewed: Reviewed by Me Departure Impression Primary Impression: Atrial fibrillation with RVR Disposition: 01 HOME, SELF-CARE Condition: Stable Departure-Patient Inst. Decision time for Depature: 11:57 Referrals: GABRIEL BOLTON [facility] F[facility] JEFF BUSTILLO DO (PCP/Family) Primary Care Physician Patient Instructions: Atrial Fibrillation (DC) Add. Discharge Instructions: Follow-up with your nursing director in the next 1 to 2 weeks to discuss medications for management of your heart rate. Return to the ER for chest pain, shortness of air or other worrisome symptoms. All discharge instructions reviewed with patient and/or family. Voiced understanding. Copy Copies To 1: GABRIEL BOLTON MD FACP [facility] SHERRY ATKINS Mar 11, 2021 10:35
[2021-03-11 10:39] LABS: BASOPHILS % (AUTO) 0 % (0-10); EOSINOPHILS # (AUTO) 0.1 10^3/uL (0.0-0.3); EOSINOPHILS % (AUTO) 1 % (0-10); HEMATOCRIT 40 % (35-52); HEMOGLOBIN 13.3 g/dL (11.5-16.0); LYMPHOCYTES % (AUTO) 36 % (12-44); MEAN CORPUSCULAR HEMOGLOBIN 31 pg (25-34); MEAN CORPUSCULAR HGB CONC 33 g/dL (32-36); MEAN CORPUSCULAR VOLUME 93 fL (80-99); MEAN PLATELET VOLUME 9.4 fL (9.0-12.2); MONOCYTES # (AUTO) 0.4 10^3/uL (0.0-1.0); MONOCYTES % (AUTO) 5 % (0-12); NEUTROPHILS # (AUTO) 4.7 10^3/uL (1.8-7.8); NEUTROPHILS % (AUTO) 56 % (42-75); PLATELET COUNT 336 10^3/uL (130-400); WHITE BLOOD COUNT 8.3 10^3/uL (4.3-11.0)
[2021-03-11 10:42] LABS: CALCIUM 9.3 MG/DL (8.5-10.1)
[2021-03-11 10:44] LABS: INR 1.2 (0.8-1.4); PROTHROMBIN TIME PATIENT 15.9 SEC (12.2-14.7)
[2021-03-11 10:46] LABS: CREATININE SERUM 0.83 MG/DL (0.60-1.30)
--- NOTE | 2021-03-11 10:49 | Diagnostic Imaging Report ---
INDICATION: Shortness of breath and irregular heartbeat. COMPARISON is made with a prior study from January 092020. FINDINGS: The lung volumes are diminished. There are patchy opacities demonstrated within the medial right lung base and adjacent to the left heart border that may reflect atelectasis or developing infiltrate. Heart size is unchanged. The central pulmonary vascularity appears appropriate without evidence of current edema or failure. There is no significant effusion or evidence of a pneumothorax. IMPRESSION: 1. Patchy basilar opacities may reflect atelectasis or early infiltrate. 2. No current findings of edema or failure. Dictated by: Dictated on workstation # [id number]
[2021-03-11 12:12] VITALS: BP 128/83
== END 2021-03-11 12:12 | disposition home or self-care (01) ==
LOC: EDUNIT# 10:14 → ER 10:16
DX: I48.20 Chronic atrial fibrillation, unspecified (principal); R00.0 Tachycardia, unspecified; I10 Essential (primary) hypertension; E03.9 Hypothyroidism, unspecified; G47.30 Sleep apnea, unspecified; Z20.822 Contact with and (suspected) exposure to COVID-19; Z79.01 Long term (current) use of anticoagulants; Z79.890 Hormone replacement therapy; Z79.899 Other long term (current) drug therapy
CPT/HCPCS: 36415; 71045; 80048; 85025; 85610; 87636; 93005

== ENCOUNTER → 2021-06-28 | Outpatient (CLI) | payer BC ==
[2021-06-28 08:27] LABS: BASOPHILS % (AUTO) 1 % (0-10); EOSINOPHILS # (AUTO) 0.2 10^3/uL (0.0-0.3); EOSINOPHILS % (AUTO) 3 % (0-10); HEMATOCRIT 41 % (35-52); HEMOGLOBIN 13.6 g/dL (11.5-16.0); LYMPHOCYTES # (AUTO) 2.1 10^3/uL (1.0-4.0); LYMPHOCYTES % (AUTO) 40 % (12-44); MEAN CORPUSCULAR HEMOGLOBIN 30 pg (25-34); MEAN CORPUSCULAR HGB CONC 33 g/dL (32-36); MEAN CORPUSCULAR VOLUME 90 fL (80-99); MEAN PLATELET VOLUME 9.1 fL (9.0-12.2); MONOCYTES # (AUTO) 0.4 10^3/uL (0.0-1.0); MONOCYTES % (AUTO) 7 % (0-12); NEUTROPHILS # (AUTO) 2.6 10^3/uL (1.8-7.8); NEUTROPHILS % (AUTO) 49 % (42-75); PLATELET COUNT 315 10^3/uL (130-400); WHITE BLOOD COUNT 5.3 10^3/uL (4.3-11.0)
[2021-06-28 08:53] LABS: BILIRUBIN,TOTAL 0.5 MG/DL (0.1-1.0); CALCIUM 9.5 MG/DL (8.5-10.1); CREATININE SERUM 0.8 MG/DL (0.60-1.30); POTASSIUM 4.3 MMOL/L (3.6-5.0); TOTAL PROTEIN 7.2 GM/DL (6.4-8.2)
[2021-06-28 09:14] LABS: FREE T4 (FREE THYROXINE) 0.79 NG/DL (0.70-1.48)
== END ==
LOC: LAB 07:56
PROVIDERS: ATTEND Nurse Practitioner Family
DX: Z00.00 Encounter for general adult medical examination without abnormal findings (principal); Z51.81 Encounter for therapeutic drug level monitoring; F32.A Depression, unspecified; R00.2 Palpitations; M54.9 Dorsalgia, unspecified; R53.83 Other fatigue; R63.5 Abnormal weight gain
CPT/HCPCS: 36415; 80053; 80061; 82306; 82607; 83036; 84439; 84443; 85025

== ENCOUNTER → 2021-09-27 | Outpatient (CLI) | payer BC ==
--- NOTE | 2021-09-27 14:58 | Diagnostic Imaging Report ---
INDICATION: Back pain. TIME OF EXAM: 2:17 PM. Three views of the lumbar spine demonstrate normal curvature and alignment. There are postop changes with posterior instrumented fusion with vertical stabilization rods and pedicle screws extending from L4 through S1. There are also postop changes of anterior lumbar interbody fusion at L5-S1. The hardware appears intact. Intervertebral devices at L4-L5 and L5-S1 are noted. Vertebral body heights are maintained. No acute compression fracture is detected. IMPRESSION: Postop changes, as described. No acute feature is detected. Dictated by: Dictated on workstation # [id number]
== END ==
LOC: RAD 13:54
PROVIDERS: ATTEND Nurse Practitioner Family
DX: M54.50 Low back pain, unspecified (principal)
CPT/HCPCS: 72100

== ENCOUNTER → 2021-10-25 | Outpatient (CLI) | payer BC ==
--- NOTE | 2021-10-25 12:40 | Diagnostic Imaging Report ---
INDICATION: Routine screening. Comparison is made with prior mammogram from 07/10/2017. 2-D and 3-D bilateral screening mammography was performed with CAD. Scattered fibroglandular densities are identified bilaterally. Nodular densities of left breast are stable. Benign calcifications in both breasts are noted. No new mass is seen. No definite malignant-appearing microcalcifications are seen. Axillae are unremarkable. IMPRESSION: No mammographic features suspicious for malignancy are identified. ACR BI-RADS Category 2: Benign findings. Result letter will be mailed to the patient. Note: At least 10% of breast cancer is not imaged by mammography. BI-RADS Category 2 Dictated by: Dictated on workstation # [id number]
== END ==
LOC: RAD 10:07
PROVIDERS: ATTEND Family Medicine
DX: Z12.31 Encounter for screening mammogram for malignant neoplasm of breast (principal)
CPT/HCPCS: 77063; 77067

== ENCOUNTER → 2022-03-13 | Outpatient (CLI) | payer BC ==
[~2022-03-13] MED LIST changes: +GADOTERATE 0.5 MMOL/ML (CLARISCAN) 20 ML VIAL IV ONE
--- NOTE | 2022-03-13 13:11 | Diagnostic Imaging Report ---
PROCEDURE: MR imaging abdomen with and without contrast. TECHNIQUE: Multiplanar, multisequence MR imaging of the abdomen was performed with and without contrast. INDICATION: Evaluate for liver lesion. Outside imaging showed abnormality in the liver. COMPARISON: 03/17/2017. FINDINGS: No focal hepatic lesions are identified. The size of the liver is normal. There are geographic areas of signal loss on out of phase imaging in the liver, suggestive of hepatic steatosis. The gallbladder is surgically absent. The portal vein is patent. The spleen, pancreas, adrenal glands, and kidneys have a normal MR appearance. No lymphadenopathy in the abdomen. The included loops of bowel are nondistended. No free fluid or free air. The included lung bases are clear. The heart size is normal. IMPRESSION: 1. Geographic areas of hepatic steatosis, likely representing the previously noted abnormality on prior imaging. No suspicious focal hepatic lesions are seen. No ascites. Dictated by: Dictated on workstation # [id number]
== END ==
LOC: RAD 08:10
PROVIDERS: ATTEND Urology
DX: K76.0 Fatty (change of) liver, not elsewhere classified (principal); R31.0 Gross hematuria
CPT/HCPCS: 74183

== ENCOUNTER → 2022-10-07 | Outpatient (CLI) | payer BC ==
[~2022-10-07] MED LIST changes: -GADOTERATE 0.5 MMOL/ML (CLARISCAN) 20 ML VIAL IV ONE; -LOSA100T3 PO; +LOSA100T4 PO; +POTA-330 PO; -POTA-51 PO
--- NOTE | 2022-10-07 17:40 | Diagnostic Imaging Report ---
INDICATION: PRODUCTIVE COUGH AND FEVER. TECHNIQUE: Two view chest 5:25 PM CORRELATION STUDY: 03/11/2021 FINDINGS: The heart size, mediastinal configuration and pulmonary vasculature are within normal limits. The lungs are clear with no consolidating infiltrate. There is no significant pleural effusion or pneumothorax. Visualized osseous structures are unremarkable. IMPRESSION: 1. Negative for acute abnormality of the chest. Dictated by: Dictated on workstation # [id number]
== END ==
LOC: RAD 17:15
PROVIDERS: ATTEND Nurse Practitioner Family
DX: R05.9 Cough, unspecified (principal); R50.9 Fever, unspecified
CPT/HCPCS: 71046

== ENCOUNTER → 2022-10-08 | Outpatient (CLI) | payer BC ==
[~2022-10-08] MED LIST changes: +HOLD METFORMIN - RECEIVED CONTRAST 20 ML VIAL IV SCH; +IOHEXOL 350 MG/ML 100 ML (OMNIPAQUE 350) VIAL IV ONE; +NS 100 ML (IVPB) BAG IV ONE
[2022-10-08 10:05] LABS: BILIRUBIN,URINE NEGATIVE (NEGATIVE); CLARITY,URINE CLEAR; COLOR,URINE YELLOW; GLUCOSE, URINE (UA) NEGATIVE (NEGATIVE); KETONES,URINE NEGATIVE (NEGATIVE); LEUKOCYTE ESTERASE ,URINE 1+ (NEGATIVE); NITRITE,URINE NEGATIVE (NEGATIVE); PROTEIN,URINE TRACE (NEGATIVE)
[2022-10-08 10:08] LABS: HEMATOCRIT 26 % (35-52); HEMOGLOBIN 8.2 g/dL (11.5-16.0); MEAN CORPUSCULAR HEMOGLOBIN 28 pg (25-34); MEAN CORPUSCULAR HGB CONC 32 g/dL (32-36); MEAN CORPUSCULAR VOLUME 88 fL (80-99); MEAN PLATELET VOLUME 8.1 fL (9.0-12.2); PLATELET COUNT 556 10^3/uL (130-400); WHITE BLOOD COUNT 13.3 10^3/uL (4.3-11.0)
[2022-10-08 10:20] LABS: BACTERIA,URINE NEGATIVE /HPF; WBC,URINE RARE /HPF
[2022-10-08 10:22] LABS: ALBUMIN 2.8 GM/DL (3.2-4.5); POTASSIUM 4.3 MMOL/L (3.6-5.0)
[2022-10-08 10:23] LABS: CALCIUM 8.4 MG/DL (8.5-10.1)
[2022-10-08 10:24] LABS: TOTAL PROTEIN 6.7 GM/DL (6.4-8.2)
[2022-10-08 10:26] LABS: BILIRUBIN,TOTAL 0.3 MG/DL (0.1-1.0)
[2022-10-08 10:28] LABS: CREATININE SERUM 0.68 MG/DL (0.60-1.30)
--- NOTE | 2022-10-08 10:55 | Diagnostic Imaging Report ---
EXAMINATION: CT abdomen and pelvis with intravenous contrast. TECHNIQUE: Multiple contiguous axial images were obtained through the abdomen and pelvis after the uneventful administration of intravenous contrast. All CT scans use one or more of the following dose optimizing techniques: automated exposure control, MA and/or KvP adjustment based on patient size and exam type or iterative reconstruction. HISTORY: Recent surgery with abdominal pain and fever COMPARISON: None available. FINDINGS: Limited views of the lower thorax are unremarkable. The liver is normal without focal lesion. There is no biliary ductal dilation. Gallbladder is absent. Pancreas is normal. Spleen is normal. Adrenal glands are normal. The kidneys are normal. There is no hydronephrosis. Urinary bladder is normal. There is a complex multiloculated fluid and gas collection in the right lower quadrant tracking along the iliacus and right paracolic gutter. It abuts the distal ileum concerning for fistulization. The largest pocket measures 7.5 x 4.9 cm. The collection extends from the right inguinal region to the inferior liver tip. No bowel wall thickening or dilation. No abdominal or pelvic lymphadenopathy. Aorta is normal in caliber without aneurysm. There are no suspicious osseus lesions. IMPRESSION: 1. Large complex multiloculated abscess in the right paracolic gutter extending from the liver to the inguinal region. There is an area of abutment of the distal ileum concerning for fistulization. Dictated by: Dictated on workstation # [id number]
== END ==
LOC: RAD 09:53
PROVIDERS: ATTEND Surgery
DX: L02.818 Cutaneous abscess of other sites (principal); Z98.890 Other specified postprocedural states
CPT/HCPCS: 36415; 74177; 80053; 81000; 85027